=== PATIENT | female | born 1960 | race Caucasian/White ===

== ENCOUNTER → 2019-05-12 12:37 | Outpatient (BNVA) | payer MEDICAID, SELFPAY | PROVIDERS: Family Provider Family Medicine; Visit Provider Psychiatry & Neurology Psychiatry | DX: F41.0 Panic disorder [episodic paroxysmal anxiety] (principal); F17.210 Nicotine dependence, cigarettes, uncomplicated | CPT/HCPCS: 90832 ==

== ENCOUNTER 2019-05-17 08:05 | Inpatient (IN) | payer MEDICAID, SELFPAY ==
--- NOTE | 2019-05-13 08:15 | XRR_ITS ---
PROCEDURE INFORMATION: Exam: XR Chest, 1 View Exam date and time: 05/13/2019 9:53 AM Age: 58 years old Clinical indication: Pre-operative exam; Respiratory screening exam; Additional info: Preop cabg TECHNIQUE: Imaging protocol: XR of the chest Views: 1 view. COMPARISON: CR Chest 2 views* [id number] 12/30/2013 3:24 PM FINDINGS: Lungs: Unremarkable. No consolidation. Pleural space: Unremarkable. No pleural effusion. No pneumothorax. Heart/Mediastinum: Unremarkable. No cardiomegaly. Bones/joints: Unremarkable. XR/XR chest 1V portable [id number] IMPRESSION: No acute findings.
[2019-05-13 08:31] VITALS: BMI 22.6
--- NOTE | 2019-05-13 09:27 | ANES.PREANE2 ---
Pre-Anesthetic Assessment Pre-Anesthetic Assessment: Height/Weight: Height 1.68 m Weight 63.503 kg Preop Diagnosis: CAD Proposed Procedure: Operation Date: 05/17/19 07:00 Proposed Procedures p CABG(Not Applicable) - Yvon Coleman MD Social: Packs per day: 1/2 Pack years: 40 Exam: Pre-Anes Outpt Exam: alert, oriented x 3, clear to auscultation bilaterally and regular rate & rhythm Airway: Submandibular: WNL Cervical ROM: WNL MP: 1 Pulmonary: Pulmonary: Asthma and COPD CV/HEM: CV/HEM: Angina (Stable), CAD, HTN and PVD : Comments: hematuria with hx stones GI: GI: PUD Musc/skel: Musc/skel: Lower Back Pain Comments: right radiculopathy Neuropsych: Neuropsych: BOX Anesthetic Plan: ASA status: 4 Anesthesia: General PFSH Anesthesia PFSH: Medical History (Updated 05/12/19 @ 11:16 by Jhonny Gonzalez DO) CAD (coronary artery disease) Cigarette nicotine dependence COPD (chronic obstructive pulmonary disease) HTN (hypertension) Hypercholesteremia Panic disorder [episodic paroxysmal anxiety] Peripheral Vascular Disease Social History (Updated 05/12/19 @ 13:16 by Jahaira Tamez LPN) Smoking and tobacco status: current some day smoker cigarettes Years cigarettes smoked: 40 Quit status (tobacco): considering quitting Second hand smoke exposure: Yes Alcohol intake: current Pets and animals: Yes History of recent travel: No Data Anesthesia Cardiac Studies: No Data to Display
[2019-05-13 09:35] LABS: Basophils # 0.1 10^3/uL (0.0-0.1); Basophils % 0.5 %; Eosinophils # 0.2 10^3/uL (0.0-0.8); Eosinophils % 1.8 %; Hematocrit 44.2 % (37.0-47.0); Hemoglobin 14.2 g/dL (11.5-15.3); Lymphocytes # 5.5 10^3/uL (0.8-4.8); Lymphocytes % 44.2 %; Mean Corpuscular HGB Conc 32.1 g/dL (30.0-36.0); Mean Corpuscular Hemoglobin 31.2 pg (28.0-34.0); Mean Corpuscular Volume 97.1 fL (81-99); Monocytes # 0.6 10^3/uL (0.2-0.9); Monocytes % 5.1 %; Neutrophils % 48.1 %; Nucleated Red Blood Cells % 0 %; Platelet Count 297 10^3/cmm (130-400); Red Blood Count 4.55 10^6/uL (4.1-5.3); Red Cell Distribution Width 13.2 % (12.1-15.1); White Blood Count 12.5 10^3/uL (4.0-10.0)
[2019-05-13 09:45] LABS: Add Urine Microscopic? YES; Bilirubin Urine Neg (NEGATIVE); Blood Urine Trace (Negative); Glucose Urine UA Norm (Normal); Ketones Urine Negative (Negative); Leukocyte Esterase Urine Negative (Negative); Nitrate Urine Negative (Negative); Protein Urine Neg (Negative); Specific Gravity, Urine 1.015 (1.005-1.030); Urine Appearance Clear (CLEAR); Urine Color Yellow (Yellow); Urobilinogen Urine Norm (Negative)
[2019-05-13 09:46] LABS: INR 0.99 (0.8-1.2)
[2019-05-13 09:47] LABS: Partial Thromboplastin Time 32.3 SECONDS (23.9-36.7)
[2019-05-13 09:52] LABS: Add Urine Culture? No; Bacteria Urine TRACE; Mucus Urine 2+; RBC Urine 0-4 /hpf (0-2); Squamous Epithelial Cell Urine 0-4 (0-5)
[2019-05-13 10:02] LABS: Alanine Aminotransferase 10 U/L (0-33); Albumin Level 4.6 g/dL (3.5-5.2); Alkaline Phosphatase 75 IU/L (35-105); Anion Gap 16.9 (5-19); Aspartate Amino Transferase 17 U/L (0-32); Blood Urea Nitrogen 13 mg/dL (6-20); Calcium 9.9 mg/dL (8.5-10.5); Carbon Dioxide 27 mmol/L (22-29); Chloride 99 mmol/L (98-107); Free T4 Free Thyroxine 1.18 ng/dL (0.82-1.77); Globulin 3.4 g/dL (1.3-4.6); Glomerular Filtration Rate 86.2 mL/min (90-130); Glucose 121 mg/dL (65-115); Osmolality Calculated 285 mOsm/kg (285-295); Potassium 3.9 mmol/L (3.5-5.1); Sodium 139 mmol/L (136-145); Thyroid Stimulating Hormone 2.38 uIU/mL (0.27-4.20); Total Bilirubin 0.2 mg/dL (0.15-1.2)
[2019-05-17] VITALS (85 sets, daily range): BP systolic 76–131; BP diastolic 49–84; PULSE 81–122; RESP 7–22; TEMP 35.6–37; O2SAT 92–977
--- NOTE | 2019-05-17 05:00 | USCV_ITS ---
Neeru Kitchen Age: 58 Gender: F : 1960 Exam Date: 05/17/2019 05:21 Ordering Phys: Yvon Coleman MD (Andy) ([email or web address]) Technologist: Shane Mcwilliams Exam Location: [facility] [place] Indication: CABG RIGHT LEFT LOWER EXTREMITY Diameter Diameter (cm) (cm) 0.31 High Thigh 0.28 0.30 Mid Thigh 0.30 0.33 Above Knee 0.27 0.30 Below Knee 0.29 0.24 Mid Calf 0.28 Ankle 0.27 RIGHT LEFT Findings Veins are found to be easily compressible with no evidence of thrombosis Conclusions Patent near normal caliber veins bilaterally with no evidence of thrombosis Dr Flor Luevano MD FACC (Electronically Signed) Final Date: 17 May 2019 13:20 S
[2019-05-17 05:21] LABS: Glucose Point of Care 107 mg/dL (70-110)
--- NOTE | 2019-05-17 05:25 | SUR.PREOP ---
0522 MAXIMO with ultrasound here for vein mapping
[2019-05-17] MEDS: sodium chloride 0.9% 1,000 ML 30 ML IV ×2 (05:33→18:39)
--- NOTE | 2019-05-17 06:28 | PM.HPUD ---
H&P update H&P Update: DATE OF SURGERY/PROCEDURE: 05/17/19 DATE H&P PERFORMED: 04/29/19 H&P UPDATE INFORMATION: H&P completed within last 30 days and No changes to prior documentation CHANGES TO PREVIOUS DOCUMENTATION: Again, I had a careful, jovan, detailed discussion with Ms. Kithcen and her significant other concerning the seriousness of the operation and the need for postoperative surveillance to include skilled care and home health services. It is again clear that he will not allow home health visits. Please see my prior clinic notes as to my discussions with him concerning this, and his responses. PREOP DIAGNOSIS: CAD PRIMARY INDICATION FOR PROCEDURE: Severe coronary disease with recurrent angina PLANNED PROCEDURE: Operation Date: 05/17/19 07:00 Proposed Procedures p CABG(Not Applicable) - Yvon Coleman MD Full H&P Medications/Allergies: Current Medications: Current Medications Generic Name Dose Route Start Last Admin Trade Name Freq PRN Reason Stop Dose Admin Sodium Chloride 1,000 mls @ 30 ml s/hr 05/17/19 05:00 05/17/19 05:33 Sodium Chloride 0.9% IV 05/18/19 04:59 30 mls/hr .Q24H AMY Administration Perinent History: Medical/Surgical History: Medical History (Updated 05/12/19 @ 11:16 by Jhonny Gonzalez DO) CAD (coronary artery disease) Cigarette nicotine dependence COPD (chronic obstructive pulmonary disease) HTN (hypertension) Hypercholesteremia Panic disorder [episodic paroxysmal anxiety] Peripheral Vascular Disease Family History: Family History (Updated 04/07/19 @ 09:40 by Samantha Holcomb RN) Father Stroke Other Cancer Clotting disorder Social History: Social History Smoking and tobacco status: current some day smoker cigarettes Years cigarettes smoked: 40 Quit status (tobacco): considering quitting Second hand smoke exposure: Yes Alcohol intake: current Pets and animals: Yes History of recent travel: No
--- NOTE | 2019-05-17 06:34 | P.ANESUD_ITS ---
Pre-Anesthetic Update Pre-Anesthetic Assessment: Date of Surgery/Procedure: 05/17/19 Preop Geno gnosis: CAD Proposed Procedure: Operation Date: 05/17/19 07:00 Proposed Procedures p CABG(Not Applicable) - Yvon Cloeman MD Any changes to Pre-Anesthetic Assessment?: No Last Intake: Intake Last Liquid Date 05/17/19 Last Liquid Time 05:00 Last Solid Date 05/16/19 Last Solid Time 00:00 Labs Last 48hrs: Laboratory Results - last 48 hr 05/13/19 05/17/19 08:45 05:18 POC Glucose 107 Blood Type O Positive Antibody Screen Negative Crossmatch See Detail Vitals: Temperature 97.1 F L 05/17/19 05:02 Temperature Source Temporal Artery S can 05/17/19 05:02 Pulse Rate 100 05/17/19 05:02 Respiratory Rate 20 H 05/17/19 05:02 Blood Pressure 121/66 05/17/19 05:02 Blood Pressure Keyonna n 84 05/17/19 05:02 Pulse Oximetry 93 05/17/19 05:02 Oxygen Delivery Me thod 05/17/19 05:02 Exam: Pre-Anes Outpt Exam: alert, oriented x 3 and regular rate & rhythm Additional Exam Findings (including area of procedure): wheezes/coarse breath sounds bilaterally. Still has chronic cough. Other Pertinent Information: Other Pertinent Information: Took atenolol this morning Cardiac Studies: No Data to Display
--- NOTE | 2019-05-17 08:10 | XR_ITS ---
WS: [id number] XR chest 1V portable [id number] REASON FOR EXAM: ET tube placement FINDINGS: Endotracheal tube is seen in the tip is at the lower half of the T3 vertebra 2.34 cm from t he shirley. Lung burch are hyper aerated. No pneumonia, pleural effusion, pulmonary edema, or mass ef fect. XR/XR chest 1V portable [id number] IMPRESSION: Endotracheal tube 2.34 cm from the shirley in adequate position.
--- NOTE | 2019-05-17 08:47 | PM.PN ---
Subjective Subjective: Interval history: was electively needed today for planned CABG with three-vessel disease. She remains hemodynamically stable, however, upon intubation for planned invasive line placement prior to CABG, she was noted to have substantial bronchospasm and prolonged expiratory phase. This did not clear with the use of albuterol treatments. She continued to have substantial air trapping. Therefore, I elected to abort proceeding with line placement for planned CABG and have the patient transported to the ICU. I have consulted and spoken personally with my colleague Dr. Maurice from pulmonary medicine. He is initially evaluated patient in the ICU and will make appropriate adjustments as necessary. She will remain intubated for the time being as she has received paralytics and plan for CABG. Currently she is on IV ratio 1-8 with elective passive hypercarbia and O2 saturation 100%. Chest x-ray is clear with flattened diaphragms and increased lung volumes consistent with COPD. Vitals/I&O/Wt Last Vital Signs Temp 97.1 F L 05/17/19 05:02 Pulse 100 05/17/19 05:02 Resp 20 H 05/17/19 05:02 BP 121/66 05/17/19 05:02 Pulse Ox 93 05/17/19 05:02 Physical Exam Neck/C-Spine: COMMON NORMALS: no JVD Resp: COMMON NORMALS: negative for clear to auscultation bilaterally AUSCULTATION: not clear to auscultation bilaterally, abnormal I/E ratio, wheezes expiratory wheezes and upper bilaterally and diminished lung sounds Cardio: COMMON NORMALS: no JVD, regular rate, regular rhythm, S1 normal heart sound, no gallops, no murmurs and no rub RATE: regular rate RHYTHM: regular rhythm HEART SOUNDS: S1 normal Data : 05/13/19 08:45 05/13/19 08:45 A&P Assessment and plan (1) Chronic obstructive pulmonary disease with bronchospasm: Impressive bronchospasm status post intubation for planned CABG. CABG will be delayed and patient is been transported to ICU for continued medical care with the expertise from Dr. Maurice from pulmonary medicine. Her family member has been Well apprised of the situation and states understanding. Status: Acute Code(s): J44.9 - Chronic obstructive pulmonary disease, unspecified Attestations Medical Necessity Statement*: Acute bronchospasm preop CABG Time Spent in Patient Care: Greater than 35 minutes Coding Level of Care Code Acute Rv Service Technician for [facility] Diagnoses Chronic obstructive pulmonary disease with bronchospasm J44.9
[2019-05-17] MEDS: propofol 1,000 MG/100 ML INJ 1.9 MG IV (09:02)
[2019-05-17 09:18] LABS: ABG PH Result 7.24 (7.35-7.45); Arterial Blood Gas Hematocrit 40.8 % (37-47); Base Excess ABG -0.9 mmol/L (-2.0-2.0); Blood Gas Sample Site ARTLINE; Blood Gas Sample Type Arterial; Blood Gas Tidal Volume 0.45; Carboxyhemoglobin 2.7 %THgb (0.4-20.1); HCO3 ABG 28.1 mmol/L (22-26); HGB O2 Sat 96.2 % (95-100); Ionized Calcium Level - ABG 1.2 mmol/L (1.1-1.4); Oxygen Device VENT; Oxygen Saturation ABG 99.9; Potassium Level - ABG 3.6 mmol/L (3.5-5.0); Total Hemoglobin 13.3 g/dL (12-16)
--- NOTE | 2019-05-17 09:20 | P.CONIM_ITS ---
Providers/Reason For Consult Consulting Physican/Specialty*: Pulmonary critical care medicine Reason for Consult*: Acute hypercapnic respiratory failure Attending Physician: Yvon Coleman MD Primary Care Provider: VELMA Minor History of Present Illness History of Present Illness Neeru Kitchen is a 58 year old female who presented to the hospital today for elective coronary artery bypass graft surgery. The patient was doing well in the preop area. After the patient underwent intubation for induction of general anesthesia the patient went into severe bronchospasm and was found to be difficult to ventilate. Her end-tidal CO2 was less than 10. There was almost no breath sound. The endotracheal tube positioning was checked with bronchoscope. The anesthesia team tried with sevoflurane to induce bronchodilation however she was still profoundly bronchospastic. The patient was already paralyzed for the intubation, the procedure was canceled and the patient was brought to the ICU. I had evaluated the patient in ICU on arrival. She was intubated, paralyzed. The patient had a peak airway pressure of 35 and a plateau pressure of 24. This was consistent with both increased airway resistance and compliance. Chest x- ray revealed no pneumothorax. Her tidal volume was in the range of 200s. On chest auscultation, there was no breath sound except some rhonchi. The patient at that time was on respiratory rate of 18. The flow time graft on the ventilator revealed significant air trapping. I had reduced the patient's respiratory rate to 8, increase the tidal volume to 480 gradually. With a significant increase in inspiratory to expiratory ratio higher end expiratory flow was minimal. Repeat measurement showed high peak pressure to be 45 with a tidal volume of 480 and plateau of 19, consistent with significantly increased airway resistance. A blood gas revealed her pH to be 7.23 with hypercapnia and PO2 in the 500s. The FiO2 was reduced. The breath sound was better. The patient was also started on continuous nebulization with 10 mg of albuterol. Based on the progression of events, I believe that the initial combination of airway resistance and compliance problem possibly stemmed from bronchospasm as well as hyperinflation. After the ventilator changes currently the patient has predominantly airway resistance problem. The history is somewhat limited because of her clinical condition. The patient however is an active smoker. Review of Systems Narrative: Unable to obtain. Meds/Allergies Home Medications and Allergies Home Medications Medication Instructions Recorded Confirmed Type albuterol sulfate 2.5 mg INHALATION Q6H 04/07/19 05/17/19 History albuterol sulfate 90 mcg/actuation 2 puff INHALATION Q6H PRN 04/07/19 05/17/19 History aerosol inhaler atenolol 25 mg tablet 25 mg PO DAILY tab 04/07/19 05/17/19 History epinephrine 0.3 mg/0.3 mL 0.3 mg IM ONCE 04/07/19 05/13/19 History injection, auto-injector fluticasone propionate 50 1 spray INTRANASAL BID 04/07/19 05/17/19 History mcg/actuation nasal spray,suspension nitroglycerin 0.4 mg sublingual 0.4 mg SUBLINGUAL Q5M PRN 04/07/19 05/13/19 History tablet venlafaxine 75 mg capsule,extended 75 mg PO QAM 04/07/19 05/13/19 History release 24 hr ergocalciferol (vitamin D2) 50,000 50,000 unit PO .weekly tab 04/29/19 05/17/19 History unit tablet isosorbide mononitrate 30 mg 30 mg PO QAM tab 04/29/19 05/17/19 History tablet,extended release 24 hr simvastatin 20 mg tablet 20 mg PO QDAY 04/29/19 05/17/19 History Allergies Allergy/AdvReac Type Severity Reaction Status Date / Time aspirin Allergy UNK Verified 05/17/19 04:56 gabapentin Allergy UNK Verified 05/17/19 04:56 ibuprofen [From Motrin] Allergy UNK Verified 05/17/19 04:56 Sulfa (Sulfonamide Allergy UNK Verified 05/17/19 04:56 Antibiotics) tramadol Allergy UNK Verified 05/17/19 04:56 Current Medications Current Medications Generic Name Dose Route Start Last Admin Trade Name Freq PRN Reason Stop Dose Admin Chlorhexidine Gluconate 15 ml 05/13/19 09:00 05/17/19 09:13 Perigard MUCOUS MEM Not Given BID AMY Sodium Chloride 1,000 mls @ 30 mls/hr 05/17/19 05:00 05/17/19 05:33 Sodium Chloride 0.9% IV 05/18/19 04:59 30 mls/hr .Q24H AMY Administration Fentanyl 1,000 mcg/ Sodium 100 mls @ 0 mls/hr 05/17/19 08:30 05/17/19 09:03 Chloride IV 25 mcg/hr .Q0M AMY 2.5 mls/hr Administration Protocol Per Protocol Propofol 1,000 mg in 100 mls @ 0 mls/hr 05/17/19 08:30 05/17/19 09:02 Diprivan IV 5 mcg/kg/min .Q0M AMY 1.9 mls/hr Administration Protocol Per Protocol Mupirocin 1 applic 05/13/19 09:00 05/17/19 09:14 Bactroban NASAL Not Given BID AMY PFSH Acute PFSH: Medical History CAD (coronary artery disease) Chronic obstructive pulmonary disease with bronchospasm Cigarette nicotine dependence COPD (chronic obstructive pulmonary disease) HTN (hypertension) Hypercholesteremia Panic disorder [episodic paroxysmal anxiety] Peripheral Vascular Disease Family History Father Stroke Other Cancer Clotting disorder Social History Smoking and tobacco status: current some day smoker cigarettes Years cigarettes smoked: 40 Quit status (tobacco): considering quitting Second hand smoke exposure: Yes Alcohol intake: current Pets and animals: Yes History of recent travel: No Vitals/I&O/Wt Last Vital Signs Temp 96.1 F L 05/17/19 09:05 Pulse 100 05/17/19 05:02 Resp 14 05/17/19 09:03 BP 121/66 05/17/19 05:02 Pulse Ox 100 05/17/19 09:03 Physical Exam Narrative: EXAM NARRATIVE: General: Intubated and sedated Neck: No JVD Respiratory: Inspection: Barrel-shaped chest Palpation: patient is intubated with trachea in midline Percussion: Hypertympanic Auscultation: Minimal breath sound in bilateral lungs which improved in subsequent exams, no crackles, minimal wheezing and rhonchi Cardiovascular: Regular rate and rhythm, S1-S2 present, no murmur, no right ventricular heave, no peripheral edema. Abdomen: Soft, nondistended, positive bowel sound Musculoskeletal: No obvious joint deformity Neuro: Unable to assess Data Imaging^: CXR: My impression: Hyperinflated lungs without any evidence of infiltrate. A&P Assessment and plan (1) Acute and chronic respiratory failure with hypercapnia: The patient has evidence of acute on chronic hypercapnic respiratory failure. Her baseline hypercapnia is minimal. The last blood gas showed a pH of 7.23 with a PCO2 of 66. The patient has evidence of hyperinflation on chest x-ray and significant history of smoking. The patient is doing much better with the current ventilator setting. We will continue with a tidal volume of 500, respiratory rate of 8, PEEP of 8 and titrate the FiO2 down to maintain oxygen saturation 88% and above. The patient is currently getting inhaled albuterol for an hour. We will continue with DuoNeb and Pulmicort nebulization as well as start her on Solu- Medrol 40 mg every 6 hours. Levaquin 750 mg daily for 5 days. The patient needs significant duration of time to exhale completely. The elevated peak airway pressure is not of concern as the plateau pressure is less than 30. I expect the peak pressure to get better with subsequent improvement in the bronchospasm. The patient is sedated with fentanyl and propofol. If the patient is not compliant with the vent and starts becoming tachypneic I might have to paralyze her. As any increase in her respiratory rate will make the airflow obstruction worse and because auto PEEP. Status: Acute Code(s): J96.22 - Acute and chronic respiratory failure with hypercapnia (2) Acute exacerbation of chronic obstructive pulmonary disease (COPD): I do not have access to any previous pulmonary function test. I expect the patient to get better in the next 48 hours or so. The patient will need outpatient follow-up and optimization prior to any surgical intervention. Thank you for the consultation. I will continue to follow patient Status: Acute Code(s): J44.1 - Chronic obstructive pulmonary disease with (acute) exacerbation Coding Level of Care Code Acute Gift Basket Packer for [facility] Diagnoses Acute and chronic respiratory failure with hypercapnia J96.22 Acute exacerbation of chronic obstructive pulmonary disease (COPD) J44.1 Time Spent (min) 47
[2019-05-17 09:22] LABS: ABG PH Result 7.23 (7.35-7.45); Alveolar-Arterial Oxygen Gradi 124.2 mmHg (5-10); Arterial Blood Gas Hematocrit 44.7 % (37-47); Base Excess ABG -1.2 mmol/L (-2.0-2.0); Blood Gas Allen Test Pos; Blood Gas Sample Site ARTLINE; Blood Gas Sample Type Arterial; Carboxyhemoglobin 2.5 %THgb (0.4-20.1); HGB O2 Sat 95.4 % (95-100); Ionized Calcium Level - ABG 1.2 mmol/L (1.1-1.4); Oxygen Device VENT; Oxygen Saturation ABG 98.9; Potassium Level - ABG 3.7 mmol/L (3.5-5.0); Total Hemoglobin 14.6 g/dL (12-16)
[2019-05-17] MEDS: chlorhexidine gluconate 0.12% Btl 473 mL 15 ML MUCOUS MEM ×2 (09:38→17:27)
[2019-05-17 09:49] LABS: ABG PCO2 66.1 mmHg (35-45)
[2019-05-17 09:50] LABS: ABG PCO2 66.4 mmHg (35-45)
[2019-05-17] MEDS: atorvastatin 40 mg Tablet 20 MG PO (10:01)
[2019-05-17] MEDS: diazePAM 5 mg Tablet 2.5 MG PO ×2 (10:02→18:33)
[2019-05-17] MEDS: atenolol 50 mg Tablet 25 MG PO (10:02)
[2019-05-17] MEDS: levofloxacin-dextrose 5 % 750 MG/150 ML PREMIX 150 MG IV (10:04)
[2019-05-17] MEDS: enoxaparin 40 mg/0.4 mL Syringe SUBCUT (10:04)
[2019-05-17] MEDS: budesonide 0.5 mg/2 mL Neb INHALATION ×2 (10:07→20:28)
[2019-05-17 10:20] LABS: ABG PH Result 7.25 (7.35-7.45); Arterial Blood Gas Hematocrit 41.5 % (37-47); Base Excess ABG -0.5 mmol/L (-2.0-2.0); Blood Gas Sample Site ARTLINE; Blood Gas Sample Type Arterial; Blood Gas Tidal Volume 0.4; Carboxyhemoglobin 2.2 %THgb (0.4-20.1); HCO3 ABG 28.1 mmol/L (22-26); HGB O2 Sat 95.5 % (95-100); Ionized Calcium Level - ABG 1.2 mmol/L (1.1-1.4); Methemoglobin 1.1 % (0.4-1.5); Oxygen Device VENT; Oxygen Saturation ABG 98.7; Potassium Level - ABG 3.3 mmol/L (3.5-5.0); Total Hemoglobin 13.5 g/dL (12-16)
[2019-05-17] MEDS: pantoprazole 40 mg SDV IVP (10:58)
[2019-05-17] MEDS: ipratropium-albuterol 3 mL Neb INHALATION ×4 (11:18→23:26)
--- NOTE | 2019-05-17 11:43 | P.HP_ITS ---
Providers/Chief Complaint Admitting Physician: Yvon Coleman MD Primary Care Provider: VELMA Minor Chief Complaint: CABAGE History of Present Illness Neeru Kitchen is a 58 year old female whom I saw originally in my office as an outpatient consultation from Dr. Juarez back on January 19, 2019. She had been evaluated for recurrent and progressive chest discomfort associated with exertion and with a high index of suspicion for coronary artery disease. This resulted in an outpatient stress test which revealed ischemia in the LAD distribution as well as a high TID ratio. Subsequent left heart catheterization was performed by Dr. Juarez on January 07 of last year which revealed a 50% left main stenosis, 90% proximal severe disease LAD which also involved the midsectio n, 70% stenosis of the first diagonal, 70% stenosis of the proximal circumflex artery, with moderate proximal RCA disease at 50% and 100% distal occlusion of the RCA with [id number] collaterals from the circumflex artery. Ejection fraction of 65% was confirmed by echocardiogram. When I initially saw her, she was reluctant to consider surgery as she stated that she was allergic to metals. When we inquired as to more specifics, she was unable to give us much detail. Also, she did ask for a second opinion, which we offered to help establish this for her. She also takes numerous herbal medications as well as smokes pipe tobacco that she rolls herself. Upon further discussions with family, she wished to be reconsidered for CABG here at [facility]. I most recently saw her again as an outpatient on April 29, 2019. I discussed the need to discontinue her herbal medications and attempt to decrease her tobacco use. Because of my concerns related to postoperative care, I did recommend [facility] care followed by home health care. Initially, she refused both but subsequently agreed to [facility] care and consideration for home health care if agreeable by her significant other. I contacted him by phone last week, but it was clear he was not going to allow this. I stated that we may not be able to provide the surgery if we were unsure of her postoperative care to help increase her chances for a good outcome. He then accused us of working only for profit and not for the welfare of Ms. Kitchen. As our conversation continued, it was clear that he was becoming more agitated. I did offer attempts to establish and expedite referral for other considerations, but he was not open to this idea. After further discussions with Ms. Kitchen, we have agreed to proceed, though it is clear they will not allow home health services. Please see my clinic notes concerning this conversation and the details provided. I did discuss details and risk of the surgery very carefully and frankly with Ms. Kitchen and her significant other, who did not accompany her on today's hospital visit, but has not been with her on our prior clinic visits. We subsequently proceeded to the operating room theater for planned CABG. After placement of a right radial arterial line and intubation by Dr. Walters, marked bronchospasm was noted with substantial air trapping. Despite albuterol treatments, this improved only modestly. I am concerned for the early postoperative course in relation to this substantial airway obstruction, therefore I elected to cancel surgery at this time. Her airway pressures are elevated with only modest tidal volumes and she has a protracted expiratory phase. With increasing the expiratory time, this was improved, though she then had progressively elevated CO2 by capnography. She has been left intubated and will be taken to the ICU. I have been in contact personally by phone with Dr. Maurice, our home care liaison. He will be assisting in her postoperative management and making airway recommendations. I do feel given the other comorbidities and the less than ideal postoperative situation which has been agreed to, it is prudent for us to attempt to maximize her pulmonary situation prior to rescheduling her CABG. I have kept her family member aware and our recommendations, and at this time, he concurs. Dr. Maurice and I have personally reviewed the post intubation chest x-ray that was obtained in the ICU. Endotracheal tube is in good position. There are no infiltrates or effusions. Lungs are fully expanded with some flattening of the diaphragms consistent with COPD. Due to difficulties with the E HR, I cannot get the home medication list to populate on the H&P, though I have reviewed and confirmed. Review of Systems Const: Reports: night sweats Eyes: Denies: change in vision Card: Reports: chest pain (Intermittently with exertion); Denies: palpitations, irregular heart rhythm or edema Resp: Reports: shortness of breath (With only modest exertion), non-productive cough and wheezing (Rarely) GI: Denies: abdominal pain, vomiting blood, coffee grounds in vomit or difficulty swallowing : Reports: urinary dribbling; Denies: difficulty urinating, painful urination or urinary frequency Musc: Reports: neck pain, back pain and joint pain Neuro: Denies: headache, numbness in extremities or slurred speech Psych: Reports: anxiety (On chronic Xanax) and depression Medications/Allergies Allergies Allergy/AdvReac Type Severity Reaction Status Date / Time aspirin Allergy UNK Verified 05/17/19 04:56 gabapentin Allergy UNK Verified 05/17/19 04:56 ibuprofen [From Motrin] Allergy UNK Verified 05/17/19 04:56 Sulfa (Sulfonamide Allergy UNK Verified 05/17/19 04:56 Antibiotics) tramadol Allergy UNK Verified 05/17/19 04:56 PFSH Acute PFSH: Medical History CAD (coronary artery disease) Chronic obstructive pulmonary disease with bronchospasm Cigarette nicotine dependence COPD (chronic obstructive pulmonary disease) HTN (hypertension) Hypercholesteremia Panic disorder [episodic paroxysmal anxiety] Peripheral Vascular Disease Family History Father Stroke Other Cancer Clotting disorder Social History Smoking and tobacco status: current some day smoker cigarettes Years cigarettes smoked: 40 Quit status (tobacco): considering quitting Second hand smoke exposure: Yes Alcohol intake: current Pets and animals: Yes History of recent travel: No Vitals/I&O/Wt Last Vital Signs Temp 96.1 F L 05/17/19 09:05 Pulse 116 H 05/17/19 11:26 Resp 14 05/17/19 11:23 BP 121/66 05/17/19 05:02 Pulse Ox 99 05/17/19 11:22 05/16/19 05/17/19 05/17/19 22:59 06:59 14:59 Intake Total 29.532 / 29.532 Balance 29.532 / 29.532 Physical Exam Const: OTHER: Patient is currently orally intubated with stable vital signs. She has received paralytic in the operating room theater. We are placing her on a propofol infusion at the present time until we have maximized her pulmonary function to allow for safe extubation. Eye: COMMON NORMALS: PERRL, conjunctivae normal and no scleral icterus Chest: COMMONS NORMALS: inspection of chest normal Resp: EFFORT & INSPECTION: No tracheal deviation AUSCULTATION: not clear to auscultation bilaterally, wheezes expiratory wheezes and upper bilaterally and diminished lung sounds bilateral in the lower lung burch Cardio: COMMON NORMALS: regular rate, regular rhythm, S1 normal heart sound, no gallops and no murmurs Extremity: COMMON NORMALS: no clubbing, cyanosis or edema Neuro: OTHER: Neurological assessment prior to entering the OR suite was normal. Current assessment is deferred as she is on a propofol infusion. Data : 05/13/19 08:45 05/13/19 08:45 A&P Assessment and plan (1) Chronic obstructive pulmonary disease with bronchospasm: Ms. Kitchen will be monitored in the ICU. She currently remains intubated. I have conferred with my colleague Dr. Maurice at bedside. Appropriate respiratory treatments and ventilator settings will be adjusted as she responds. I have also counseled with her family member. He has visited with her at bedside. It is my understanding he is returning home. I will not reschedule surgery at this time until we have confirmed that her pulmonary status is maximized and stable. Status: Acute Code(s): J44.9 - Chronic obstructive pulmonary disease, unspecified Attestations Medical Necessity Statement*: Coronary artery disease with COPD exacerbation and bronchospasm Time Spent in Patient Care: Greater than 35 minutes Coding Level of Care Code Acute Excellence Specialist for [facility] Diagnoses Chronic obstructive pulmonary disease with bronchospasm J44.9
[2019-05-17 11:58] LABS: ABG PCO2 54.8 mmHg (35-45); ABG PH Result 7.28 (7.35-7.45); Alveolar-Arterial Oxygen Gradi 104.5 mmHg (5-10); Arterial Blood Gas Hematocrit 40.5 % (37-47); Base Excess ABG -1.9 mmol/L (-2.0-2.0); Blood Gas Sample Site Not specified; Blood Gas Sample Type Arterial; Blood Gas Tidal Volume 0.4; Carboxyhemoglobin 1.9 %THgb (0.4-20.1); HCO3 ABG 25.7 mmol/L (22-26); HGB O2 Sat 95.2 % (95-100); Ionized Calcium Level - ABG 1.2 mmol/L (1.1-1.4); Methemoglobin 1.2 % (0.4-1.5); Oxygen Device VENT; Oxygen Saturation ABG 98.2; Total Hemoglobin 13.2 g/dL (12-16)
[2019-05-17 12:10] LABS: ABG PCO2 63.5 mmHg (35-45)
[2019-05-17] MEDS: propofol 1,000 MG/100 ML INJ 11.4 MG IV ×2 (13:31→19:24)
--- NOTE | 2019-05-17 13:52 | PC.CHAP ---
Pastoral Care Encounter/Spiritual Assessment Type of Contact [] Declined incident response coordinator visit [] Patient/Family/Request visit [] Outpatient visit [] Follow-up visit [] Physician referral [] Code/Alert [] Routine visit [] Staff referral [] Actively dying [] Patient sleeping [] Family support [] [] Out of room [] Palliative care [] [] Receiving care in room [] Pre-surgical visit [] Trauma [] Long length of stay [x] ICU visit [] Other: Relational/Emotional Strength [] Patient feels connected with others/family/visitors/staff [] Distress [] Loneliness/isolation [] Abandonment Spirituality of Patient [] Person of Catarina [] Attends Christian of their Catarina [] Believes in Prayer [] Reads Bible or Religion materials [] There are Spiritual issues to be addressed Food And Beverage Operations Manager Interventions [x] Prayer [] Active listening [] Non-anxious presence [] Spiritual/emotional support [] Crisis/trauma care [] Spiritual counseling [] Bereavement support [] Provided bereavement packet [] Provided Bible/devotional materials [] Provided toy/stuffed animal, coloring book to patient or family member [] Provided Communion [] Anointing/[place] [] Salvation [] Completed spiritual assessment [] Other: Impact on Illness or Injury [] Angry [] Fearful [] Anxious [] Often cries [] Exhaustion [] Unable to work [] Unable to attend sabianism [] Unable to walk/stand [] Unable to read [] Unable to drive [] Unable to eat/drink [] Unable to sleep [] Unable to be with family [x] Patient intubated [] Other: Summary Patient was intubated and not awake. Food And Beverage Operations Manager prayed over patient. Patient visited by Food And Beverage Operations Manager Emil Lund. Time spent with patient 5 minutes
--- NOTE | 2019-05-17 19:25 | PC.NURSE ---
opening note received patient from TYE Gayle. patient is intubated and sedated. 7.5 tube 25 in at the lip. VT:400 PEEP:5 FIO2:40. patient has an OG clamped . peripheral IVs in 16 G left hand and 16G left forearm. a-line to right wrist zeroed c good wave form, Normal saline at 30mls/hr. Propofol at 35mcg/kg/min. fentanyl at 75mcg/hr. patient has bilateral upper extremity soft wrist restraints for patient safety. lomax with clear drainage.
[2019-05-18] VITALS (49 sets, daily range): BP systolic 85–115; BP diastolic 52–72; PULSE 61–110; RESP 11–25; TEMP 36.7–37.1; O2SAT 91–98
[2019-05-18] MEDS: propofol 1,000 MG/100 ML INJ 11.4 MG IV ×2 (00:49→06:48)
[2019-05-18] MEDS: ipratropium-albuterol 3 mL Neb INHALATION ×6 (04:32→23:15)
[2019-05-18 04:54] LABS: ABG PCO2 53.1 mmHg (35-45); ABG PH Result 7.32 (7.35-7.45); Arterial Blood Gas Hematocrit 40.1 % (37-47); Base Excess ABG 0.2 mmol/L (-2.0-2.0); Blood Gas Allen Test Pos; Blood Gas Sample Site Radial, right; Blood Gas Sample Type Arterial; HCO3 ABG 27.3 mmol/L (22-26); Oxygen Device VENT; PO2 ABG 93.7 mmHg (80.0-100.0)
[2019-05-18 04:57] LABS: Basophils % 0.1 %; Hemoglobin 12.8 g/dL (11.5-15.3); Lymphocytes # 1.6 10^3/uL (0.8-4.8); Lymphocytes % 13.6 %; Mean Corpuscular Hemoglobin 31.1 pg (28.0-34.0); Mean Corpuscular Volume 97.3 fL (81-99); Mean Platelet Volume 9.6 fL (7.4-10.4); Monocytes # 0.3 10^3/uL (0.2-0.9); Monocytes % 2.2 %; Neutrophils # 9.5 10^3/uL (1.8-7.7); Neutrophils % 83.7 %; Nucleated Red Blood Cells % 0 %; Platelet Count 291 10^3/cmm (130-400); Red Blood Count 4.11 10^6/uL (4.1-5.3); Red Cell Distribution Width 13.3 % (12.1-15.1); White Blood Count 11.4 10^3/uL (4.0-10.0)
[2019-05-18 05:19] LABS: Anion Gap 17.3 (5-19); Blood Urea Nitrogen 15 mg/dL (6-20); Calcium 9.5 mg/dL (8.5-10.5); Carbon Dioxide 25 mmol/L (22-29); Chloride 97 mmol/L (98-107); Glomerular Filtration Rate 86.2 mL/min (90-130); Glucose 194 mg/dL (65-115); Osmolality Calculated 282 mOsm/kg (285-295); Potassium 4.3 mmol/L (3.5-5.1); Sodium 135 mmol/L (136-145)
--- NOTE | 2019-05-18 06:00 | XR_ITS ---
WS: [id number] XR chest 1V portable [id number] REASON FOR EXAM: Hospital day #1 status post intubation; preop CABG; bronchospasm FINDINGS: Endotracheal tube remains in good position as well as a feeding tube in the stomach. There is arteriosclerotic changes seen in the arch the aorta. The heart is not enlarged. There is chronic changes in both lung burch but no pneumonia, pleural effusion, pulmonary edema, no pneumothorax. XR/XR chest 1V portable [id number] IMPRESSION: Endotracheal tube unchanged in good position. The lung burch are otherwise normal. A feeding tube is seen in the region of the stomach in good position.
--- NOTE | 2019-05-18 06:04 | P.PN_ITS ---
Subjective Subjective: Interval history: Nursing service reports patient had uneventful night. She is currently orally intubated and appears comfortable with sedation in place. Peak airway pressure 27. FiO2 40%, rate 12 No EKG changes Vitals/I&O/Wt Last Vital Signs Temp 98.1 F 05/18/19 03:00 Pulse 104 H 05/18/19 04:33 Resp 15 05/18/19 04:33 BP 108/62 05/18/19 04:00 Pulse Ox 94 05/18/19 04:33 05/17/19 05/17/19 05/18/19 14:59 22:59 06:59 Intake Total 302.522 / 302.522 460.07 / 762.592 134.167 / 896.759 Output Total 418 / 418 200 / 618 Balance 302.522 / 302.522 42.07 / 344.592 -65.833 / 278.759 Physical Exam Resp: OTHER: Orally intubated and mechanically ventilated. Breath sounds substantial improved with less expiratory wheezes noted Cardio: COMMON NORMALS: regular rate, regular rhythm and S1 normal heart sound RATE: regular rate RHYTHM: regular rhythm HEART SOUNDS: S1 normal Urinary Catheter Management^: Garza: Cath Placed During This Visit: yes Urethral Indwelling: Yes Reason for Continuing Indwelling Catheter: Accurate Measurement of Urinary Output in Critically Ill Patients Urinary Catheter Date of Insertion: 05/17/19 Data : 05/18/19 04:30 05/18/19 04:30 Micro: Microbiology 05/17/19 08:50 Gram Stain - Final Sputum - Endotracheal Tube Aspirate A&P Assessment and plan (1) Chronic obstructive pulmonary disease with bronchospasm: Acute bronchospasm status post intubation for planned CABG. It is my understanding Dr. Maurice plans for evaluation this morning and extuba tion. Greatly appreciate his expertise. We will have to assess stability and long-term maintenance of medical management for maximal pulmonary reserve and subsequently reconsider CABG at a future date. Status: Acute Code(s): J44.9 - Chronic obstructive pulmonary disease, unspecified Attestations Medical Necessity Statement*: COPD with acute bronchospasm Time Spent in Patient Care: less than 15 minutes Coding Level of Care Code Acute Instructor Tap Dancing for [facility] Diagnoses Chronic obstructive pulmonary disease with bronchospasm J44.9
[2019-05-18] MEDS: budesonide 0.5 mg/2 mL Neb INHALATION ×2 (07:49→20:13)
[2019-05-18] MEDS: chlorhexidine gluconate 0.12% Btl 473 mL 15 ML MUCOUS MEM (08:10)
[2019-05-18] MEDS: diazePAM 5 mg Tablet 2.5 MG PO ×2 (08:10→17:26)
[2019-05-18] MEDS: atorvastatin 40 mg Tablet 20 MG PO (08:11)
[2019-05-18] MEDS: atenolol 50 mg Tablet 25 MG PO (08:11)
[2019-05-18] MEDS: pantoprazole 40 mg SDV IVP (08:12)
[2019-05-18] MEDS: levofloxacin-dextrose 5 % 750 MG/150 ML PREMIX 100 MG IV (08:17)
[2019-05-18] MEDS: enoxaparin 40 mg/0.4 mL Syringe SUBCUT (08:17)
--- NOTE | 2019-05-18 11:25 | P.PN_ITS ---
Subjective Subjective: Interval history: The patient was seen and examined this morning. She was intubated and sedated at the time compliant with the ventilator and doing well. I had started her on Precedex with a plan to discontinue the fentanyl and propofol that she was on for sedation. Subsequently the patient was extubated successfully. Medications: Reviewed: Yes Vitals/I&O/Wt Last Vital Signs Temp 98.4 F 05/18/19 08:00 Pulse 95 05/18/19 10:00 Resp 15 05/18/19 10:16 BP 91/57 05/18/19 10:00 Pulse Ox 96 05/18/19 10:00 05/17/19 05/18/19 05/18/19 22:59 06:59 14:59 Intake Total 460.07 / 762.592 202.377 / 964.969 350.769 / 350.769 Output Total 418 / 418 200 / 618 Balance 42.07 / 344.592 2.377 / 346.969 350.769 / 350.769 Physical Exam Narrative: EXAM NARRATIVE: General: Patient is awake alert and oriented, communicating after extubation Neck: No JVD, no cervical or supraclavicular lymphadenopathy. Respiratory: Inspection: Barrel-shaped chest Palpation: Trachea is mildly deviated to the right Percussion: Bilateral tympanic percussion note both anterior and posteriorly Auscultation: Vesicular breath sound with prolonged expiration, no crackles diffuse wheezing and rhonchi Cardiovascular: Regular rate and rhythm, S1-S2 present, no murmur, no peripheral edema. Abdomen: Soft, nontender, nondistended, positive bowel sound Musculoskeletal: No obvious joint deformity Skin: No rash Neuro: Patient is awake alert and oriented, no focal deficit Urinary Catheter Management^: Garza: Cath Placed During This Visit: yes Urethral Indwelling: Yes Reason for Continuing Indwelling Catheter: Accurate Measurement of Urinary Output in Critically Ill Patients Urinary Catheter Date of Insertion: 05/17/19 Data : 05/18/19 04:30 05/18/19 04:30 Micro: Microbiology 05/17/19 08:50 Gram Stain - Final Sputum - Endotracheal Tube Aspirate Sputum Culture - Preliminary CXR: My impression: Chest x-ray obtained this morning showed hyperinflation however comparison to chest x-ray obtained yesterday hyperinflation has gotten significantly better. There is significant translucency on the chest x-ray obta ined yesterday which is not present today. There is no infiltrate in any particular distribution. A&P Assessment and plan (1) Acute and chronic respiratory failure with hypercapnia: The patient did well with pressure support ventilation and was successfully extubated. She is doing well currently. She will need optimization of her therapy for COPD. I have cut on the patient's steroid to 40 mg IV twice a day. She could be put on prednisone 40 mg daily from tomorrow to complete 3 more days of therapy. If the patient were to undergo CABG down the line will have to carefully manage her respiratory status during the perioperative.. The patient requires a significant amount of time to exhale all the way and we might have to consider to give her a respiratory rate of 8-10 with a higher tidal volume to support her during the procedure. She has evidence of hypercapnia and will possibly require a noninvasive ventilator at home. However the patient does have social issues and probably benefit from a social service director consult. I will be happy to follow-up with her as outpatient. Status: Acute Code(s): J96.22 - Acute and chronic respiratory failure with hypercapnia (2) Acute exacerbation of chronic obstructive pulmonary disease (COPD): The patient is currently on steroid and antibiotic. The Levaquin can be switched to oral tomorrow to complete a total of 5-day course. The patient will need a stable inhaler regimen prior to discharge. She will possibly require triple therapy. I will arrange for that prior to her discharge. Thank you for allowing me to participate in this patient's care. Status: Acute Code(s): J44.1 - Chronic obstructive pulmonary disease with (acute) exacerbation Attestations Medical Necessity Statement*: Will defer to the primary team Coding Level of Care Code Acute Size Marker for Peyton Cannon Diagnoses Acute and chronic respiratory failure with hypercapnia J96.22 Acute exacerbation of chronic obstructive pulmonary disease (COPD) J44.1 Time Spent (min) 33
--- NOTE | 2019-05-18 11:38 | PC.RESP ---
extubated pt extubated and placed on 3lpm nc, tolerated well
[2019-05-18] MEDS: venlafaxine ER (24HR) 75 mg Capsule PO (11:39)
--- NOTE | 2019-05-18 15:26 | PC.CHAP ---
Pastoral Care Encounter/Spiritual Assessment Type of Contact [] Declined assistant professor of music visit [] Patient/Family/Request visit [] Outpatient visit [] Follow-up visit [] Physician referral [] Code/Alert [] Routine visit [] Staff referral [] Actively dying [] Patient sleeping [] Family support [] [] Out of room [] Palliative care [] [] Receiving care in room [] Pre-surgical visit [] Trauma [] Long length of stay [x] ICU visit [] Other: Relational/Emotional Strength [x] Patient feels connected with others/family/visitors/staff [] Distress [] Loneliness/isolation [] Abandonment Spirituality of Patient [x] Person of Catarina [] Attends Adventist of their Catarina [x] Believes in Prayer [] Reads Bible or Mosque materials [] There are Spiritual issues to be addressed Baler Operator Interventions [x] Prayer [x] Active listening [x Non-anxious presence [x] Spiritual/emotional support [] Crisis/trauma care [] Spiritual counseling [] Bereavement support [] Provided bereavement packet [] Provided Bible/devotional materials [] Provided toy/stuffed animal, coloring book to patient or family member [] Provided Communion [x] Anointing/[place] [] Salvation [] Completed spiritual assessment [] Other: Impact on Illness or Injury [] Angry [] Fearful [x] Anxious [] Often cries [] Exhaustion [] Unable to work [] Unable to attend yarsanism [] Unable to walk/stand [] Unable to read [] Unable to drive [] Unable to eat/drink [] Unable to sleep [] Unable to be with family [] Patient intubated [] Other: Summary Patient was open to prayer and visit Time spent with patient 8
--- NOTE | 2019-05-18 22:49 | PC.NURSE ---
REMAINING FENTANYL DRIP WASTED WITH AGNIESZKA GAMBLE. 48 MLS WASTED.
[2019-05-19] VITALS (31 sets, daily range): BP systolic 94–136; BP diastolic 53–77; PULSE 69–104; RESP 16–28; TEMP 36.5–37.2; O2SAT 86–95
[2019-05-19] MEDS: ipratropium-albuterol 3 mL Neb INHALATION ×5 (04:06→20:06)
[2019-05-19] MEDS: venlafaxine ER (24HR) 75 mg Capsule PO (05:03)
[2019-05-19] MEDS: isosorbide mononitrate ER 30 mg Tablet PO (05:03)
--- NOTE | 2019-05-19 06:17 | PC.NURSE ---
SHIFT SUMMARY PT HAS BEEN ALERT AND ORIENTATED. PT HAS HAD NO COMPLAINTS OF CHEST PAIN. PT HAS HAD ADEQUATE URINE OUTPUT. PT IV REMAINS PATENT. PT HAS HAD NO COMPLAINTS. PT REMAINS ON NASAL CANNULA.
--- NOTE | 2019-05-19 07:22 | PM.PN ---
Subjective Subjective: Interval history: Looks very good this morning. No complaints. Rested well last night. We will DC Garza catheter. We will check her O2 saturation whether without oxygen at rest and with ambulation. Vitals/I&O/Wt Last Vital Signs Temp 98.9 F 05/19/19 03:34 Pulse 92 05/19/19 06:00 Resp 20 H 05/19/19 06:00 BP 104/66 05/19/19 06:00 Pulse Ox 93 05/19/19 06:00 05/18/19 05/19/19 05/19/19 22:59 06:59 14:59 Intake Total 544.04 / 994.809 320 / 1314.809 Output Total 1700 / 1700 2000 / 3700 Balance -1155.96 / -705.191 -1680 / -2385.191 Physical Exam Resp: COMMON NORMALS: normal respiratory effort, no retractions, no use of accessory muscles and clear to auscultation bilaterally (There are light intermittent late expiratory wheezes noted.) AUSCULTATION: clear to auscultation bilaterally (There are light intermittent late expiratory wheezes noted.) Cardio: COMMON NORMALS: regular rate, regular rhythm and S1 normal heart sound RATE: regular rate RHYTHM: regular rhythm HEART SOUNDS: S1 normal Urinary Catheter Management^: Garza: Cath Placed During This Visit: yes Urethral Indwelling: Yes Reason for Continuing Indwelling Catheter: Accurate Measurement of Urinary Output in Critically Ill Patients Urinary Catheter Date of Insertion: 05/17/19 Data : 05/18/19 04:30 05/18/19 04:30 Micro: Microbiology 05/17/19 08:50 Gram Stain - Final Sputum - Endotracheal Tube Aspirate Sputum Culture - Preliminary A&P Assessment and plan (1) Chronic obstructive pulmonary disease with bronchospasm: Will await the recommendation of Dr. Maurice. If continued hospitalization is recommended, I will plan to transfer to the [facility]. If cleared by him, I will plan for discharge and continued outpatient management of her pulmonary status for optimization prior to a repeat attempt for scheduling of CABG. I greatly appreciate Dr. Maurice's expertise and oversight. Status: Acute Code(s): J44.9 - Chronic obstructive pulmonary disease, unspecified Attestations Medical Necessity Statement*: COPD exacerbation with severe bronchospasm Time Spent in Patient Care: less than 15 minutes Coding Level of Care Code Acute Creative Writing English Professor for [facility] Diagnoses Chronic obstructive pulmonary disease with bronchospasm J44.9
[2019-05-19] MEDS: atorvastatin 40 mg Tablet 20 MG PO (08:36)
[2019-05-19] MEDS: diazePAM 5 mg Tablet 2.5 MG PO ×2 (08:36→17:55)
[2019-05-19] MEDS: pantoprazole 40 mg SDV IVP (08:36)
[2019-05-19] MEDS: atenolol 50 mg Tablet 25 MG PO (08:36)
[2019-05-19] MEDS: levofloxacin-dextrose 5 % 750 MG/150 ML PREMIX 150 MG IV (08:37)
[2019-05-19] MEDS: enoxaparin 40 mg/0.4 mL Syringe SUBCUT (08:37)
[2019-05-19] MEDS: budesonide 0.5 mg/2 mL Neb INHALATION ×2 (09:13→20:06)
--- NOTE | 2019-05-19 11:47 | PM.PN ---
Subjective Subjective: Interval history: The patient was seen and examined today. She is doing remarkably well. The patient is breathing at baseline right now. At home, the patient uses albuterol inhaler as needed and albuterol nebulizer as needed. She used to use steroid inhaler in the past however she has not used it in more than a year. The patient unfortunately continues to smoke. I had an extensive discussion with her. I have informed her that she needs to quit smoking as this will help her in the short-term through the surgical procedure in the long-term for her overall lung function. The patient states that she has not smoked in the past few days and I stressed that this might be the right time for her to quit smoking completely. Medications: Reviewed: Yes Vitals/I&O/Wt Last Vital Signs Temp 98.9 F 05/19/19 03:34 Pulse 88 05/19/19 11:22 Resp 18 05/19/19 11:19 BP 124/74 05/19/19 10:00 Pulse Ox 91 05/19/19 11:19 05/18/19 05/19/19 05/19/19 22:59 06:59 14:59 Intake Total 544.04 / 994.809 320 / 1314.809 240 / 240 Output Total 1700 / 1700 2000 / 3700 250 / 250 Balance -1155.96 / -705.191 -1680 / -2385.191 -10 / -10 Physical Exam Narrative: EXAM NARRATIVE: General: Patient is awake alert and oriented, at baseline Neck: No JVD, no cervical or supraclavicular lymphadenopathy. Respiratory: Inspection: Barrel-shaped chest Palpation: Trachea is mildly deviated to the right Percussion: Bilateral tympanic percussion note both anterior and posteriorly Auscultation: Reduced breath sound bilaterally, vesicular breath sound with prolonged expiration, no crackles or wheezing wheezing, occasional rhonchi Cardiovascular: Regular rate and rhythm, S1-S2 present, no murmur, no peripheral edema. Abdomen: Soft, nontender, nondistended, positive bowel sound Musculoskeletal: No obvious joint deformity Skin: No rash Neuro: Patient is awake alert and oriented, no gross motor deficit Urinary Catheter Management^: Garza: Cath Placed During This Visit: yes Urethral Indwelling: Yes Reason for Continuing Indwelling Catheter: Accurate Measurement of Urinary Output in Critically Ill Patients Urinary Catheter Date of Insertion: 05/17/19 Data : 05/18/19 04:30 05/18/19 04:30 Micro: Microbiology 05/17/19 08:50 Gram Stain - Final Sputum - Endotracheal Tube Aspirate Sputum Culture - Preliminary Other data: All the patient's data have been reviewed. A&P Assessment and plan (1) Acute and chronic respiratory failure with hypercapnia: Patient is doing well. At baseline. The patient has evidence of hypercapnic respiratory failure which needs to be evaluated as outpatient. She might require noninvasive ventilator for long-term use down the line. I have cut down her steroid dose to prednisone 40 mg daily for 3 more days starting tomorrow morning. I have also switched her IV Levaquin to oral Levaquin starting tomorrow for 3 more days. Status: Acute Code(s): J96.22 - Acute and chronic respiratory failure with hypercapnia (2) Acute exacerbation of chronic obstructive pulmonary disease (COPD): Patient is on therapy for acute exacerbation of COPD. The patient can be discharged on Symbicort 160/4.5 mcg 2 puff 2 times a day and Spiriva HandiHaler 18 mcg which would be 2 puffs daily. The other option would be Trelegy 1 puff daily. She will also need albuterol inhaler as needed which she probably already has. The patient will need to follow-up with me as outpatient next week. She will need a complete pulmonary function test. I have discussed in detail with the patient the importance of quitting smoking. Hopefully, she will be able to do that. Thank you for letting me participate in this patient's care. Status: Acute Code(s): J44.1 - Chronic obstructive pulmonary disease with (acute) exacerbation Attestations Medical Necessity Statement*: Will defer to the primary team Coding Level of Care Code Acute Manager Mental Health for Peyton Cannon Diagnoses Acute and chronic respiratory failure with hypercapnia J96.22 Acute exacerbation of chronic obstructive pulmonary disease (COPD) J44.1 Time Spent (min) 25
--- NOTE | 2019-05-19 12:11 | PC.CHAP ---
Pastoral Care Encounter/Spiritual Assessment Type of Contact [] Declined side trimmer visit [] Patient/Family/Request visit [] Outpatient visit [] Follow-up visit [] Physician referral [] Code/Alert [x] Routine visit [] Staff referral [] Actively dying [x] Patient sleeping [] Family support [] [] Out of room [] Palliative care [] [] Receiving care in room [] Pre-surgical visit [] Trauma [] Long length of stay [x] ICU visit [] Other: Relational/Emotional Strength [] Patient feels connected with others/family/visitors/staff [] Distress [] Loneliness/isolation [] Abandonment Spirituality of Patient [] Person of Catarina [] Attends Temple of their Catarina [] Believes in Prayer [] Reads Bible or Congregation materials [] There are Spiritual issues to be addressed Filter Changing Technician Interventions [] Prayer [] Active listening [] Non-anxious presence [] Spiritual/emotional support [] Crisis/trauma care [] Spiritual counseling [] Bereavement support [] Provided bereavement packet [] Provided Bible/devotional materials [] Provided toy/stuffed animal, coloring book to patient or family member [] Provided Communion [] Anointing/[employer] [] Salvation [x] Completed spiritual assessment [] Other: Impact on Illness or Injury [] Angry [] Fearful [] Anxious [] Often cries [] Exhaustion [] Unable to work [] Unable to attend synagogue [] Unable to walk/stand [] Unable to read [] Unable to drive [] Unable to eat/drink [] Unable to sleep [] Unable to be with family [] Patient intubated [] Other: Summary Time spent with patient
--- NOTE | 2019-05-19 16:44 | PC.NURSE ---
Transfer to floor Patient transferred to [facility] via wheelchair by nurse. Report called to MARIA ISABEL Maciel. Nurse in room upon arrival. Patient oriented to room and call light within reach. All belongings sent with patient.
[2019-05-19] MEDS: chlorhexidine gluconate 0.12% Btl 473 mL 15 ML MUCOUS MEM (17:54)
[2019-05-20] VITALS (12 sets, daily range): BP systolic 102–118; BP diastolic 59–69; PULSE 72–86; RESP 17–18; TEMP 36.4–37; O2SAT 90–96
[2019-05-20] MEDS: ipratropium-albuterol 3 mL Neb INHALATION ×4 (00:53→11:18)
[2019-05-20] MEDS: isosorbide mononitrate ER 30 mg Tablet PO (05:56)
[2019-05-20] MEDS: levoFLOXacin 750 mg Tablet PO (05:56)
[2019-05-20] MEDS: venlafaxine ER (24HR) 75 mg Capsule PO (05:56)
[2019-05-20] MEDS: budesonide 0.5 mg/2 mL Neb INHALATION (07:13)
--- NOTE | 2019-05-20 07:13 | P.DS_ITS ---
Discharge Providers Date of Admission: 05/17/19 08:05 Date of Discharge: May 20, 2019 Attending Provider at Admission: Yvon Coleman MD Attending Provider at Discharge: Yvon Coleman MD Primary Care Provider: VELMA Minor Diagnoses at Discharge Discharge Diagnosis (1) Acute and chronic respiratory failure with hypercapnia: Status: Acute Problem details: Resolved (2) Chronic obstructive pulmonary disease with bronchospasm: Status: Acute Problem details: Currently under oversight and management of Dr. Maurice from our pulmonary medicine service. She will follow-up with him in 2 weeks after discharge for continued optimization of her pulmonary status prior to attempt at rescheduling for CABG (3) CAD (coronary artery disease): Status: Acute Problem details: Coronary artery disease with surgical revascularization recommended. Activity will be limited while we attempt to maximize her pulmonary status prior to rescheduling for surgery Reason for Visit Reason for Visit: Reason For Visit: CABAGE Hospital Course Hospital Course: Ms. Kitchen was electively admitted for planned coronary artery bypass grafting with severe coronary disease. She developed acute bronchospasm with air trapping during induction of anesthesia. This required canceling of the planned surgery and medical management in the ICU where she required dilatory support at school late the following day. She has been evaluated by Dr. Maurice from pulmonary medicine and appropriate inhaler and steroid support provided. She will need continued outpatient management and optimization of her pulmonary status prior to attempting to reschedule for coronary bypass grafting. Discharge Summary: At discharge, she is in stable condition. We will attempt to assist with obtaining appropriate medications for her continued treatment for her pulmonary disease. As well, she will need oxygen, 2 L nasal cannula in the immediate discharge period Physical Exam Resp: COMMON NORMALS: normal respiratory effort and clear to auscultation bilaterally EFFORT & INSPECTION: Yes able to speak in complete sentences AUSCULTATION: clear to auscultation bilaterally Cardio: COMMON NORMALS: regular rate, regular rhythm, S1 normal heart sound and no murmurs RATE: regular rate RHYTHM: regular rhythm HEART SOUNDS: S1 normal Urinary Catheter Management^: Garza: Cath Placed During This Visit: yes Urethral Indwelling: Yes Reason for Continuing Indwelling Catheter: Accurate Measurement of Urinary Output in Critically Ill Patients Urinary Catheter Date of Insertion: 05/17/19 Discharge Data Data Completed and Pending: Completed Studies During Hospitalization Category Date Time Status XR chest 1V ced ble [id number] Routine Exams 05/13/19 08:15 Completed XR chest 1V ced ble [id number] Routine Exams 05/18/19 06:00 Completed XR chest 1V ced ble [id number] Stat Exams 05/17/19 08:10 [place] [id number] Routi ne Ultrasound 05/17/19 05:00 Completed Pending at discharge Category Date Time Status Complete Crossmat ch Routine Lab 05/13/19 08:45 Results Leukocyte Reduced RBC Routine Lab 05/13/19 08:45 Results Leukrd/Plat Phere sis 1st Cont Routi ne Lab 05/13/19 08:45 Results Retype for XM Rou lucia Lab 05/13/19 08:45 Results Sputum Culture an d Gram Stain Stat Lab 05/17/19 08:50 Results Type and Screen - Cardiac Routine Lab 05/13/19 08:45 Results Vitals: Last Vital Signs Temp 97.6 F 05/20/19 03:00 Pulse 82 05/20/19 04:19 Resp 18 05/20/19 04:11 BP 105/62 05/20/19 03:00 Pulse Ox 92 05/20/19 04:19 Discharge Plan Discharge Patient Disposition: Home, Self-Care Condition: Stable Prescriptions: Continued isosorbide mononitrate 30 mg tablet extended release 24 hr 30 mg PO QAM RF: 0 simvastatin 20 mg tablet 20 mg PO QDAY RF: 0 ergocalciferol (vitamin D2) 50,000 unit tablet 50,000 unit PO .weekly RF: 0 epinephrine [EpiPen] 0.3 mg/0.3 mL auto-injector 0.3 mg IM ONCE RF: 0 albuterol sulfate [ProAir HFA] 90 mcg/actuation HFA aerosol inhaler 2 puff INHALATION Q6H PRN (Reason: soa) RF: 0 fluticasone propionate [Flonase Allergy Relief] 50 mcg/actuation spray,suspension 1 spray INTRANASAL BID RF: 0 atenolol 25 mg tablet 25 mg PO DAILY RF: 0 albuterol sulfate 2.5 mg /3 mL (0.083 %) solution for nebulization 2.5 mg INHALATION Q6H RF: 0 venlafaxine 75 mg capsule,extended release 24hr 75 mg PO QAM RF: 0 nitroglycerin [Nitrostat] 0.4 mg tablet, sublingual 0.4 mg SUBLINGUAL Q5M PRN (Reason: Chest Pain) RF: 0 diazepam 5 mg tablet See Rx Instructions PO .COMPLEX Qty: 35 RF: 2 Discharge Orders: Discharge Order (Routine); Ordered 05/20/19 Ordered By: Yvon Coleman Other Ambulatory Orders: DME: Oxygen (Order) Location: None Selected Ordered By: Darshan Maurice Referrals: Darshan Maurice MD [Physician] - 2 weeks Discharge Diet: Usual diet Discharge Activity: Resume usual activity Activity Restrictions/Additional Instructions: NO SMOKING Discharge Attestations Time Spent in Discharge Care*: greater than 30 min Specific Discharge Activities: Specific discharge activities: educating patient, discussing with case manager/social workers/dc planners, documenting/other paperwork and evaluating patient/reviewing data Time Spent in Smoking Cessation: Time spent discussing smoking cessation with patient: 3 to 10 minutes Details of Smoking Cessation Education: .Again reiterated the need to attempt to refrain from all tobacco use given her marked pulmonary dysfunction Status at Discharge: Cognitive status at discharge: cognitively intact , Behavioral status at discharge: cooperative , Functional status at discharge: independent ambulation Overall status at discharge: patient is back to baseline Quality Metrics Clinical Quality Measures During this hospital stay, did patient experience: None Coding Level of Care Code Acute Light Armored Reconnaissance Officer for Malorieg Fwd Exam Expanded Problem Focused Diagnoses Acute and chronic respiratory failure with hypercapnia J96.22 Chronic obstructive pulmonary disease with bronchospasm J44.9 CAD (coronary artery disease) I25.10
--- NOTE | 2019-05-20 09:07 | P.PN_ITS ---
Subjective Subjective: Interval history: The patient was seen and examined this morning. She is doing well. She is back to baseline now. She complains of mild tenderness in the right upper posterior chest. The plan is for her to go home today. I have emphasized the importance of quitting smoking to her again. She stated that she could not make any promises but she will try her best. I have informed her that if she can quit smoking till her surgery is over that would help tremendously in the perioperative period. Medications: Reviewed: Yes Vitals/I&O/Wt Last Vital Signs Temp 98.6 F 05/20/19 07:00 Pulse 75 05/20/19 07:19 Resp 18 05/20/19 07:13 BP 118/69 05/20/19 07:00 Pulse Ox 93 05/20/19 07:13 05/19/19 05/20/19 05/20/19 22:59 06:59 14:59 Intake Total 240 / 700 Balance 240 / 450 Physical Exam Narrative: EXAM NARRATIVE: General: Patient is awake alert and oriented, no distress at all Neck: No JVD, no cervical or supraclavicular lymphadenopathy. Respiratory: Inspection: Barrel-shaped chest Palpation: Trachea is mildly deviated to the right Percussion: Bilateral tympanic percussion note both anterior and posteriorly Auscultation: Reduced breath sound bilaterally, vesicular breath sound with prolonged expiration, no crackles or wheezing wheezing, minimal rhonchi Cardiovascular: Regular rate and rhythm, S1-S2 present, no murmur, no peripheral edema. Abdomen: Soft, nontender, nondistended, positive bowel sound Musculoskeletal: No obvious joint deformity Skin: No rash Neuro: Patient is awake alert and oriented, no gross motor deficit Urinary Catheter Management^: Garza: Cath Placed During This Visit: yes Urethral Indwelling: Yes Reason for Continuing Indwelling Catheter: Accurate Measurement of Urinary Output in Critically Ill Patients Urinary Catheter Date of Insertion: 05/17/19 Data : 05/18/19 04:30 05/18/19 04:30 Micro: Microbiology 05/17/19 08:50 Gram Stain - Final Sputum - Endotracheal Tube Aspirate Sputum Culture - Preliminary A&P Assessment and plan (1) Acute and chronic respiratory failure with hypercapnia: Patient is at baseline. She is going to go home today. Her family is coming to pick her up. The patient will receive antibiotic and steroid to complete a 5-day course. She does have evidence of hypercapnia as mentioned in my previous note. When she comes back to see me in the office she will most likely qualify for noninvasive ventilator. Status: Acute Code(s): J96.22 - Acute and chronic respiratory failure with hypercapnia (2) Acute exacerbation of chronic obstructive pulmonary disease (COPD): I have written the prescription for Symbicort and Spiriva for the patient. When the patient comes back to see me in the office she is current need a pulmonary function test and optimization of her COPD prior to her surgical intervention. The plan has been discussed in detail with the nurse. Status: Acute Code(s): J44.1 - Chronic obstructive pulmonary disease with (acute) exacerbation Attestations Medical Necessity Statement*: Will defer to the primary team Coding Level of Care Code Acute Global Mobility Specialist for Peyton Cannon Diagnoses Acute and chronic respiratory failure with hypercapnia J96.22 Acute exacerbation of chronic obstructive pulmonary disease (COPD) J44.1
[2019-05-20] MEDS: atenolol 50 mg Tablet 25 MG PO (10:24)
[2019-05-20] MEDS: predniSONE 20 mg Tablet 40 MG PO (10:26)
[2019-05-20] MEDS: atorvastatin 40 mg Tablet 20 MG PO (10:26)
[2019-05-20] MEDS: pantoprazole DR 40 mg Tablet PO (10:27)
[2019-05-20] MEDS: diazePAM 5 mg Tablet 2.5 MG PO (10:28)
[2019-05-20] MEDS: chlorhexidine gluconate 0.12% Btl 473 mL 15 ML MUCOUS MEM (10:28)
[2019-05-20] MEDS: enoxaparin 40 mg/0.4 mL Syringe SUBCUT (10:29)
== END 2019-05-20 15:02 | disposition home or self-care (01) | DRG 302 ==
LOC: ICU 08:06 → MEDSURG 05-19 17:04
PROVIDERS: Internal Medicine Critical Care Medicine; Admitting Provider Thoracic Surgery (Cardiothoracic Vascular Surgery); Family Provider Family Medicine; PCP Nurse Practitioner Family; Visit Provider Thoracic Surgery (Cardiothoracic Vascular Surgery)
PROC: 5A1945Z Respiratory Ventilation, 24-96 Consecutive Hours (ICD-10-PCS; principal; 2019-05-17 07:00)
DX: I25.10 Atherosclerotic heart disease of native coronary artery without angina pectoris (principal); J96.22 Acute and chronic respiratory failure with hypercapnia; F17.210 Nicotine dependence, cigarettes, uncomplicated; I10 Essential (primary) hypertension; E78.00 Pure hypercholesterolemia, unspecified; I73.9 Peripheral vascular disease, unspecified; J98.01 Acute bronchospasm; Z79.899 Other long term (current) drug therapy; Z88.2 Allergy status to sulfonamides; Z88.8 Allergy status to other drugs, medicaments and biological substances; Z53.8 Procedure and treatment not carried out for other reasons; Z88.6 Allergy status to analgesic agent
CPT/HCPCS: 12345; 36415; 36416; 36600; 51702; 71045; 80048; 80051; 80076; 81001; 82803; 82810; 82962; 83986; 84439; 84443; 85025; 85610; 85730; 86850; 86900; 87070; 87205; 93970; 94002; 94003; 94640; 94644; 94645; 94799; 96372; 96375; A4570; C9113; J1650; J1956; J2001; J2250; J2370; J2704; J2920; J3010; J3490; J3535; J7030; J7512; J7611; J7626

== ENCOUNTER → 2019-08-04 08:08 | Outpatient (BNVA) | payer MEDICAID, SELFPAY | PROVIDERS: Family Provider Family Medicine; PCP Nurse Practitioner Family; Visit Provider Psychiatry & Neurology Psychiatry | DX: F41.0 Panic disorder [episodic paroxysmal anxiety] (principal); F17.210 Nicotine dependence, cigarettes, uncomplicated | CPT/HCPCS: 99214 ==

== ENCOUNTER → 2019-10-21 08:06 | Outpatient (BNVA) | payer MEDICAID, SELFPAY | PROVIDERS: Family Provider Family Medicine; PCP Nurse Practitioner Family; Visit Provider Psychiatry & Neurology Psychiatry | DX: F41.0 Panic disorder [episodic paroxysmal anxiety] (principal); F17.210 Nicotine dependence, cigarettes, uncomplicated | CPT/HCPCS: 99213 ==

== ENCOUNTER → 2019-12-29 14:13 | Outpatient (BNVA) | payer MEDICAID, SELFPAY | PROVIDERS: Family Provider Family Medicine; PCP Nurse Practitioner Family; Visit Provider Nurse Practitioner Family | DX: J44.9 Chronic obstructive pulmonary disease, unspecified (principal); E55.9 Vitamin D deficiency, unspecified; I10 Essential (primary) hypertension; R73.9 Hyperglycemia, unspecified | CPT/HCPCS: 80053; 80061; 82306; 83036; 84443; 85025 ==

== ENCOUNTER → 2020-01-04 07:29 | Outpatient (BNVA) | payer MEDICAID, SELFPAY | PROVIDERS: Family Provider Family Medicine; PCP Nurse Practitioner Family; Visit Provider Psychiatry & Neurology Psychiatry | DX: F41.0 Panic disorder [episodic paroxysmal anxiety] (principal); F17.210 Nicotine dependence, cigarettes, uncomplicated | CPT/HCPCS: 99213 ==

== ENCOUNTER → 2020-05-12 09:18 | Outpatient (BNVA) | payer BC, SELFPAY | PROVIDERS: Family Provider Family Medicine; PCP Nurse Practitioner Family; Visit Provider Psychiatry & Neurology Psychiatry | DX: F41.0 Panic disorder [episodic paroxysmal anxiety] (principal); F17.210 Nicotine dependence, cigarettes, uncomplicated | CPT/HCPCS: 99214 ==

== ENCOUNTER → 2020-06-22 12:24 | Outpatient (BNVA) | payer BC, SELFPAY | PROVIDERS: Family Provider Family Medicine; PCP Nurse Practitioner Family; Visit Provider Internal Medicine Cardiovascular Disease | DX: I10 Essential (primary) hypertension (principal); I25.10 Atherosclerotic heart disease of native coronary artery without angina pectoris; Z20.822 Contact with and (suspected) exposure to COVID-19 | CPT/HCPCS: 87635 ==

== ENCOUNTER 2020-06-27 08:23 | Day surgery (SDC) | payer BC, MEDICAID, SELFPAY ==
[2020-06-22 12:08] LABS: Basophils # 0.1 10^3/uL (0.0-0.1); Basophils % 0.6 %; Eosinophils # 0.1 10^3/uL (0.0-0.8); Eosinophils % 1.4 %; Hematocrit 45.6 % (37.0-47.0); Hemoglobin 14.9 g/dL (11.5-15.3); Lymphocytes # 3.6 10^3/uL (0.8-4.8); Lymphocytes % 35.9 %; Mean Corpuscular HGB Conc 32.7 g/dL (30.0-36.0); Mean Platelet Volume 9.3 fL (7.4-10.4); Monocytes # 0.7 10^3/uL (0.2-0.9); Monocytes % 6.7 %; Neutrophils # 5.55 10^3/uL (1.8-7.7); Neutrophils % 55.1 %; Nucleated Red Blood Cells % 0 %; Platelet Count 284 10^3/cmm (130-400); Red Cell Distribution Width 13.1 % (12.1-15.1); White Blood Count 10.1 10^3/uL (4.0-10.0)
[2020-06-22 12:17] LABS: INR 0.95 (0.83-1.21); Prothrombin Time (Patient) 12.9 Seconds (12.0-15.1)
[2020-06-22 12:21] LABS: Anion Gap 12.5 (5-19); Blood Urea Nitrogen 9 mg/dL (6-20); Calcium 9.4 mg/dL (8.5-10.5); Carbon Dioxide 30 mmol/L (22-29); Chloride 97 mmol/L (98-107); Glomerular Filtration Rate 126.7 mL/min (90-130); Glucose 97 mg/dL (65-115); Osmolality Calculated 279 mOsm/kg (285-295); Potassium 4.5 mmol/L (3.5-5.1); Sodium 135 mmol/L (136-145)
[2020-06-27] VITALS (17 sets, daily range): BP systolic 99–127; BP diastolic 55–75; PULSE 67–76; RESP 14–28; TEMP 36.6; O2SAT 90–95; BMI 21.9
--- NOTE | 2020-06-27 07:30 | XACV_ITS ---
Exam Room: 1 Ht: 168 cm Wt: 62 kg BSA: 1.70 m2 Gender: Female : 1960 Any Known Allergies: Other Exam Priority: Routine Procedure(s): Procedure Description: Diagnostic procedure Procedure Description: Left Heart Catheterization Procedure Description: Left ventriculography Procedure Description: Coronary Angiography Diagnostic Findings * LM has 0% stenosis. * mLAD: Severe 100% stenosis, MARYANNE: 0 flow. * pCIRC: Severe 80% stenosis, MARYANNE: 3 flow. * pRCA to mRCA: Severe 100% stenosis, MARYANNE: 0 flow. * 3rd OM to dLAD collateralization. * Lat 2nd OM to 3rd SP collateralization. * dCIRC to RPAV collateralization. * dCIRC to CIRC AV collateralization. * Coronary angiography shows right dominance. Conclusions 1. There is severe coronary artery disease with three vessel disease. 2. All park are normal. 3. Normal left ventricular systolic function. Ejection fraction of 65%. Recommendations * 1-Return to ICU for close monitoring and routine PCI care 2-Continue IV heparin drip as per ACS protocol 3-Hold Plavix for possible CABG 4-Statin with LDL goal of 70 mg/dl, aspirin 81 mg p.o. daily for life long 5-CT surgery referal for CABG, patient was already seen by the surgeon in [place] at home 6-Optimal medical management 7-Follow up with Dr. Juarez in four weeks and establish care with primary care physician, follow up with CT surgery.. Diagnostic RX Recommendation: CABG Ventriculography Ejection Fraction: 65.0 % Left Ventriculography Findings: * No significant wall motion abnormality noted, normal left ventricle ejection fraction 65%. Pressures Phase:Rest AO : 108 / 69 ( 83 ) @ 4:16:00 AM 88 / 67 ( 78 ) @ 4:19:00 AM 104 / 66 ( 82 ) @ 4:27:00 AM 107 / 67 ( 83 ) @ 4:27:00 AM LV : 108 / 11 / @ 4:25:00 AM 110 / 10 / @ 4:26:00 AM 112 / 10 / @ 4:27:00 AM Valves Phase:DefaultPhase AV : 6.0 @ 9:35:15 AM AV Mean Gradient: 9.0 @ 9:35:15 AM Clinical Evaluation EBL: 5mL-10mL Procedural Details Procedure Consent Obtained. Aaron Hernandez RRT was relieved by Aaron Hernandez RRT as monitoring person. Pre-Procedure Time Out. Identified patient by full name and date of as verbalized by the patient/guarantor. Does the consent match the physician's order: Yes. Accurate & Complete Informed Consent: Yes. Inpatient/Outpatient History & Physical on Chart: Yes. If H&P is completed, is and addenduem needed: No; If yes, is the addendum complete: N/A. Visualize and Verify Site with Patient/Guarantor: N/A. Relevant Radiology Images available: N/A. Pre-op teaching completed and patient verbalized understanding. The risks, benefits, and alternatives of sedation and/or procedure were discussed by physician. The patient agrees to continue. Procedure started. [facility] Clinical Fraility Score: 4: Vulnerable. It Specialist Indications: Worsening Angina. Chest Pain Symptom Assessment: Typical Angina Symptoms. Cardiovascular Instability: No, if yes, Persistant Ischemic Symptoms. Physician arrived. Equipment: 6F - Radial. Cardiac Cath Pack. ACIST Manifold Kit Model BT 2000. Heparinized Saline (2 units/mL), 1000 mL bag. Correct patient, site and procedure confirmed by cath team. PERRLA. Strong, equal hand hand candle molder bilaterally. Lungs clear x 5 lobes. IV Site on Arrival: 20 gauge in the left anticubital. IV Fluids: 0.9% NaCl at KVO. 0 mL infused prior to dental laboratory worker. Pre Procedural Pulses: bilateral dorsalis pedis was 1+. Pre Procedural Pulses: bilateral posterior tibial was Doppled. Pre Procedural Pulses: bilateral radial was 3+. Oxygen started at 2liters/min via nasal canula. bilateral groins was prepped with chloroprep then draped in the usual sterile fashion. right radial was prepped with chloroprep then draped in the usual sterile fashion. Baseline sample Acquired. HR: 74 BPM. Physician scrubbed in. Immediate Pre-Procedure Time Out. Correct Patient: Yes; Correct Procedure: Yes; Correct Site: Yes; Correct Patient Position: Yes; Correct Supplies: Yes; Dried Flammable Prep: Yes; Blood Products Available: N/A;. Lidocaine 1% infiltrated to the right radial. Arterial access obtained. A 5 luxembourger TIG catheter in over wire. Multiple views taken of left coronary artery. Catheter redirected to the RCA. Multiple views taken of right coronary artery. Catheter removed over the exchange wire. A 5 luxembourger Angled Pig catheter in over wire. EDP Sample taken: LV 108/11,25; HR: 67 BPM; SpO2: 98%. LV gram performed in AP @ mL/second for a total of mL. LV gram performed in WERNER @ 10 mL/second for a total of 30 mL. EDP Sample taken: LV 110/10,25; HR: 66 BPM; SpO2: 98%. Pullback taken: LV 112/10,26; AO 104/66(82); Mean: 9mmHg, Peak to Peak: 6mmHg, SEP: 18sec/min; HR: 65 BPM; SpO2: 99%. Catheter removed over the exchange wire. Physician scrubbed out. A TR Band was successful obtaining hemostatsis at the Right Radial artery insertion site. TR band placed. Hemostasis obtained. Post Procedure: Pulses reassessed and unchanged. PERRLA. Strong, equal hand hand candle molder bilaterally. No VTE prophylaxis required. Contrast type used: Visipaque 320 mgI/mL, 500 mL bottle. Post-op diagnosis: multivessel CAD. Medication's Wasted: Lidocaine 1% = 18 mL. Medication's Wasted: Nitro = 49.8 mg. Medication's Wasted: Heparin = 1000 units. Medication's Wasted: Other = versed 1 mg. Medication's Wasted: Other = fentanyl 75 mcg. Total IV fluids: 80 mL. Complications: none. Estimated blood loss: 5mL-10mL. Procedure completed. Patient transferred by wheelchair to CPRU. Vital chart was stopped. Access Site Site: Right Radial artery Sheath Size: 6 Fr Hemostasis Method: TR Band Hemostasis Success: Successful Procedure Medications Start: 9:01 AM Stop: 9:01 AM Medication: Versed Amount: 1 mg Route: I.V. Start: 9:01 AM Stop: 9:01 AM Medication: Fentanyl Amount: 50 mcg Route: I.V. Start: 9:09 AM Stop: 9:09 AM Medication: Versed Amount: 1 mg Route: I.V. Start: 9:09 AM Stop: 9:09 AM Medication: Fentanyl Amount: 50 mcg Route: I.V. Start: 9:14 AM Stop: 9:14 AM Medication: Nitrogylcerin Amount: 200 mcg Route: I.A. Start: 9:14 AM Stop: 9:14 AM Medication: Versed Amount: 1 mg Route: I.V. Start: 9:14 AM Stop: 9:14 AM Medication: Fentanyl Amount: 25 mcg Route: I.V. Start: 9:16 AM Stop: 9:16 AM Medication: Heparin Amount: 5000 units Route: I.V. I, the attending physician, have reviewed and verified all procedure medications. Yes, all medications given per verbal order History/Risk Factors Hypertension: Yes Dyslipidemia: No Peripheral Arterial Disease (PAD): Yes Myocardial Infarction ([place]): No Obesity: No Renal Disease: No Tobacco Use: Current/Recent(w/in 1 year) Prior Interventions PCI: No CABG: No Valve Surgery: No Report Signatures Finalized by Brina Juarez MD on 07/08/2020 03:10 PM
[2020-06-27] MEDS: diphenhydrAMINE 50 mg Capsule PO (08:43)
--- NOTE | 2020-06-27 09:00 | P.HP_ITS ---
Same Day Surgery H&P Indication for Procedure/HPI DATE OF PROCEDURE: June 27, 2020 CHIEF COMPLAINT/INDICATIONFOR SURGICAL PROCEDURE: Left heart cath for possible CABG with history of multivessel coronary artery disease. PREOP DIAGNOSIS: CAD PLANNED PROCEDRUE: Operation Date: 06/27/20 08:30 Proposed Procedures p Cardiac Catheterization 65188 I25.10(Left) - Brina Juarez MD 59-year-old female past medical history significant for multivessel coronary artery disease who was referred nearly more than a year ago for coronary artery bypass surgery due to logistics patient declined the surgery in the past despite of multiple appointments at different places including [facility], [facility] and at [facility] months ago she was referred to [place]. Now she has decided that she will go for coronary artery bypass as she is constantly deteriorating with debilitating angina and worsening of shortness of breath. We have been asked by CT surgeon to perform left heart cath in order to a certain any changes in her lesion before proceeding with surgery. It is the reason patient has been brought in today for left heart cath. Patient has been explained all risk benefit and alternative for the procedure. She understand the risk of urgent emergent bypass, surgery, risk for major minor bleed, risk for arrhythmia, risk for compartment syndrome and worse case scenario . She would like to proceed with it. Medications/Allergies* Home Medications Medication Instructions Recorded Confirmed Type epinephrine 0.3 mg/0.3 mL 0.3 mg IM ONCE 04/07/19 06/26/20 History injection, auto-injector nitroglycerin 0.4 mg sublingual 0.4 mg SUBLINGUAL Q5M PRN 04/07/19 06/26/20 History tablet herbal drugs tab PO 07/26/19 05/31/20 History Allergies/Adverse Reactions Allergy/AdvReac Type Severity Reaction Status Date / Time bee venom protein (honey bee) Allergy Intermediate pass out Verified 05/31/20 14:08 swell up Sulfa (Sulfonamide AdvReac Severe Severe Verified 05/31/20 14:08 Antibiotics) pains aspirin AdvReac Mild Ulcer Verified 05/31/20 14:08 ibuprofen [From Motrin] AdvReac Mild Ulcer Verified 05/31/20 14:08 tramadol AdvReac Mild Nauseous Verified 05/31/20 14:08 Pertinent History/Comorbid Conditions* Medical History (Updated 01/20/20 @ 14:44 by Darshan Maurice MD) CAD (coronary artery disease) Coronary artery disease with surgical revascularization recommended. Activity will be limited while we attempt to maximize her pulmonary status prior to rescheduling for surgery Chronic obstructive pulmonary disease with bronchospasm Currently under oversight and management of Dr. Maurice from our pulmonary medicine service. She will follow-up with him in 2 weeks after discharge for continued optimization of her pulmonary status prior to attempt at rescheduling for CABG Cigarette nicotine dependence COPD (chronic obstructive pulmonary disease) HTN (hypertension) Hypercholesteremia Panic disorder [episodic paroxysmal anxiety] Peripheral Vascular Disease Surgical History (Updated 08/29/19 @ 18:10 by VELMA Minor) S/P dilatation and curettage S/P hysterectomy S/P right heart catheterization S/P tubal ligation Family History (Updated 04/07/19 @ 09:40 by Samantha Holcomb RN) Clotting disorder Cancer Stroke Father Social History Smoking and tobacco status: current every day smoker cigarettes Years cigarettes smoked: 40 [ Other cigarette details: Hx of 1.5 PPD x 40 Years ] Quit status (tobacco): considering quitting Second hand smoke exposure: Yes Alcohol intake: current Lives independently: Yes Household members: spouse Marital status: Current occupational status: disabled Pets and animals: Yes History of recent travel: No Current gender identity: Female Pertinent Exam Findings alert, oriented x 3, clear to auscultation bilaterally and regular rate & rhythm Conscious Sedation Assessment PATIENT ASSESSED PRIOR TO SEDATION, WITH NO CHANGE NOTED: Yes AIRWAY EVAL/ANESTHESIA PLAN: normal airway, see other exam findings, ASA II, Risks, benefits & alternatives of sedation and/or procedure discussed and Patient agrees to continue as planned Recommendations Surgery/Procedure today Coding Level of Care Code Acute Elementary Esl Teacher for Peyton Cannon
--- NOTE | 2020-06-27 10:03 | PC.NURSE ---
recovery received pt from skilled laborer post diagnostic c via wheelchair. pt alert and oriented x3. pt complains of numbness in right hand but of no pain. no hematoma noted. trband dry and intact. right radial pulse palpable. pt educated on the restrictions of right wrist and acknowledged understanding. pt stated she remembers from previous procedures. pt placed on telemetry and and vital to be taken every 15 minutes.
--- NOTE | 2020-06-27 12:30 | PC.NURSE ---
tr band tr band off and site is now lightly wrapped with coban. bandaid under near skin. pt again reminded of restrictions of her wrist. she states she understood.
== END 2020-06-27 13:34 | disposition home or self-care (01) ==
PROVIDERS: PCP Nurse Practitioner Family; Visit Provider Internal Medicine Cardiovascular Disease
DX: I25.10 Atherosclerotic heart disease of native coronary artery without angina pectoris (principal); I10 Essential (primary) hypertension; J44.9 Chronic obstructive pulmonary disease, unspecified; F17.210 Nicotine dependence, cigarettes, uncomplicated; E78.00 Pure hypercholesterolemia, unspecified
CPT/HCPCS: 36415; 80048; 85025; 85610; 93452; C1769; C1887; C1894; J1644; J2250; J3010; J3490; J7030; Q0163; Q9967

== ENCOUNTER → 2020-07-17 07:26 | Outpatient (BNVA) | payer BC, MEDICAID, SELFPAY | PROVIDERS: PCP Nurse Practitioner Family; Visit Provider Psychiatry & Neurology Psychiatry | DX: F41.0 Panic disorder [episodic paroxysmal anxiety] (principal); F17.210 Nicotine dependence, cigarettes, uncomplicated | CPT/HCPCS: 99214 ==

== ENCOUNTER 2020-08-30 13:41 | Outpatient (CLI) | payer BC, MEDICAID, SELFPAY ==
--- NOTE | 2020-08-30 13:52 | USCV_ITS ---
Neeru Kitchen Age: 59 Gender: F : 1960 Exam Date: 08/30/2020 14:08 Ordering Phys: Heraclio Camejo MD Technologist: Shane Mcwilliams Exam Location: [facility] [place] Indication: PRE OP BP: 115 / 74 HR: 74 Rhythm: Sinus Technical Quality: Adequate MEASUREMENTS (Male / Female) Normal Values 2D ECHO LV Diastolic Diameter PLAX 3.3 cm 4.2 - 5.9 / 3.9 - 5.3 cm LV Systolic Diameter PLAX 1.9 cm IVS Diastolic Thickness 1.1 cm 0.6 - 1.0 / 0.6 - 0.9 cm IVS Systolic Thickness 1.4 cm LVPW Diastolic Thickness 0.8 cm 0.6 - 1.0 / 0.6 - 0.9 cm LVPW Systolic Thickness 1.4 cm LVOT Diameter 2.0 cm LV Ejection Fraction 2D Teich 73.2 % LV Ejection Fraction MOD 2C 61.2 % LV Ejection Fraction 2C AL 63.4 % LA Diameter 3.0 cm LA Width 3.4 cm LA Height 4.4 cm RA Width 3.6 cm RA Height 3.5 cm Aorta at Sinotubular Diameter 2.2 cm M-MODE Aortic Annulus Diameter 3.0 cm LA Ao Ratio MM 1.1 DOPPLER AV Peak Velocity 91.0 cm/s LVOT Peak Velocity 87.0 cm/s AV Area Cont Eq vti 3.4 cm squared AV Area Cont Eq pk 3.2 cm squared MV Area PHT 5.0 cm squared Mitral E to A Ratio 0.7 MV E' Velocity 32.0 cm/s Mitral E to MV E' Ratio 6.4 Mitral E to LV E' Lateral Ratio 6.7 Mitral E to LV E' Septal Ratio 6.1 TR Peak Velocity 155.7 cm/s TR Peak Gradient 9.7 mmHg TV Peak E Velocity 80.0 cm/s Right Atrial Pressure 3.0 mmHg Pulmonary Artery Systolic Pressu 12.7 mmHg PV Peak Velocity 77.0 cm/s FINDINGS Left Ventricle Normal left ventricular size. LV systolic function is normal with EF of 55-60%. No regional wall motion abnormalities. Right Ventricle The right ventricle is normal in size and function. Right Atrium The right atrium is normal in size. Left Atrium The left atrium is normal in size. Mitral Valve Structurally normal mitral valve without significant stenosis or prolapse. There is no mitral regurgitation. Aortic Valve Structurally normal aortic valve without significant sclerosis or stenosis. There is no aortic regurgitation. Tricuspid Valve Structurally normal tricuspid valve without significant stenosis or regurgitation. Insufficient TR jet to calculate RVSP Pulmonic Valve Structurally normal pulmonic valve without significant stenosis. There is no pulmonic regurgitation. Pericardium Normal pericardium without effusion. Aorta Normal ascending aorta dimension. CONCLUSIONS Normal left ventricular size. LV systolic function is normal with EF of 55-60% No significant valvular heart disease Compared to prior echocardiogram form 01/07/2019, no significnat changes are noted Timi Stewart MD (Electronically Signed) Final Date: 05 September 2020 23:13 S
--- NOTE | 2020-08-30 13:52 | USCV_ITS ---
Neeru Kitchen Age: 59 Gender: F : 1960 Exam Date: 08/30/2020 14:25 Ordering Phys: Heraclio Camejo MD Technologist: Shane Mcwilliams [place] [facility] [place] [facility] [place]ication: PREOP Risk Factors: Previous Vascular Surgery: Right Brachial BP: / Left Brachial BP: / Right Left Velocity (cm/s) Spectral Plaque Velocity (cm/s) Spectral Plaque Syst/Diast Broadening Syst/Diast Broadening 48.90/ 15.50 Prox CCA 70.70 / 21.80 45.10/ 13.20 Mid CCA 69.10 / 19.40 66.80/ 24.90 Distal CCA 61.40 / 16.30 78.30/ 28.70 Prox ICA 110.30/ 45.10 / Mid ICA 99.40 / 29.50 70.60/ 28.70 Distal ICA 116.50/ 48.20 123.50 ECA 97.00 1.17 ICA/CCA 1.65 Antegrade Vertebral Antegrade 36.50/ 10.10 cm/s 44.00/ 7.90 cm/s Tri Subclavian Tri 71.50 85.40 FINDINGS Moderate heterogeneous plaques at the common carotid artery and proximal ICA on the left side Minimal plaques at the right ICA and bifurcation. Antegrade flow in the vertebral arteries bilaterally The right mid ICA was not visualized/documented Delayed peaking Doppler waveforms in the right ICA. CONCLUSIONS Moderate heterogeneous plaques at the common carotid artery and proximal ICA on the left side with velocity elevation, consistent with less than 50% stenosis at the proximal ICA. Abnormal Doppler waveforms in the right ICA may suggest high- grade stenosis proximally. Technically difficult study Consider CTA, to better evaluate the arteries on the right side No similar previous studies are available for comparison Dr Flor Luevano MD [facility] (Electronically Signed) Final Date: 31 August 2020 09:09 S
--- NOTE | 2020-08-30 13:55 | USCV_ITS ---
Neeru Kitchen Age: 59 Gender: F : 1960 Exam Date: 08/30/2020 14:40 Ordering Phys: Heraclio Camejo MD Technologist: Exam Location: [facility] [place] Indication: PREOP RIGHT LEFT LOWER EXTREMITY Diameter Diameter (cm) (cm) 0.17 High Thigh 0.29 0.18 Mid Thigh 0.29 0.21 Above Knee 0.24 0.21 Below Knee 0.19 0.17 Mid Calf 0.13 0.16 Ankle 0.21 RIGHT LEFT UPPER EXTREMITY The Upper Extremity section is not evaluated at this time Findings Veins appear to be patent and easily compressible No evidence of thrombosis Conclusions 1. Small caliber patent veins bilaterally with no evidence of thrombosis. 2. The venous diameters as mentioned above. In the right lower extremity, the venous segments measured anywhere from 0.16 to 0.21 cm. On the left side, the venous segments were measuring area from 0.19 to 0.29 cm, excluding the mid calf. Dr Flor Luevano MD [facility] (Electronically Signed) Final Date: 30 August 2020 21:13 S
== END 2020-08-30 13:42 | disposition home or self-care (01) ==
LOC: RAD 13:44
PROVIDERS: PCP Nurse Practitioner Family; Visit Provider Surgery Vascular Surgery
DX: I25.10 Atherosclerotic heart disease of native coronary artery without angina pectoris (principal); Z01.810 Encounter for preprocedural cardiovascular examination; I65.22 Occlusion and stenosis of left carotid artery
CPT/HCPCS: 93306; 93880; 93970

== ENCOUNTER → 2020-09-06 11:12 | Outpatient (BNVA) | payer BC, MEDICAID, SELFPAY | PROVIDERS: PCP Nurse Practitioner Family; Visit Provider Nurse Practitioner Family | DX: N39.0 Urinary tract infection, site not specified (principal); R10.2 Pelvic and perineal pain; Z68.21 Body mass index [BMI] 21.0-21.9, adult; F17.210 Nicotine dependence, cigarettes, uncomplicated | CPT/HCPCS: 81003; 87077; 87086; 87184 ==

== ENCOUNTER → 2020-09-13 07:09 | Outpatient (BNVA) | payer BC, SELFPAY | PROVIDERS: PCP Nurse Practitioner Family; Visit Provider Psychiatry & Neurology Psychiatry | DX: F41.0 Panic disorder [episodic paroxysmal anxiety] (principal); F17.210 Nicotine dependence, cigarettes, uncomplicated | CPT/HCPCS: 99213 ==

== ENCOUNTER → 2020-10-20 13:38 | Outpatient (BNVA) | payer BC, MEDICAID, SELFPAY | PROVIDERS: PCP Nurse Practitioner Family; Visit Provider Surgery Vascular Surgery | DX: Z20.822 Contact with and (suspected) exposure to COVID-19 (principal) | CPT/HCPCS: 87635 ==

== ENCOUNTER 2020-11-15 09:59 | Outpatient (CLI) | payer BC, MEDICAID, SELFPAY ==
--- NOTE | 2020-11-15 10:09 | US_ITS ---
WS: [id number] TRANSABDOMINAL PELVIC ULTRASOUND HISTORY: R10.2 - Pelvic and perineal pain COMPARISON: None available. Uterus: Prior hysterectomy. No midline mass or fluid. Neither ovary is identified. There is a large amount shadowing from bowel gas. No adnexal mass or ova ry identified. No fluid. No free fluid in the cul-de-sac. US/US pelvic complete* [id number] IMPRESSION: 1. Study limited as only transabdominal imaging is submitted. Patient refused transvaginal exam at this time. 2. Status post hysterectomy. Uterus and ovaries are not identified. No masses.
== END 2020-11-15 10:00 | disposition home or self-care (01) ==
LOC: RAD 10:07
PROVIDERS: PCP Nurse Practitioner Family; Visit Provider Nurse Practitioner Family
DX: R10.2 Pelvic and perineal pain (principal); Z90.710 Acquired absence of both cervix and uterus
CPT/HCPCS: 76856

== ENCOUNTER → 2020-12-08 09:25 | Outpatient (BNVA) | payer BC, MEDICAID, SELFPAY | PROVIDERS: PCP Nurse Practitioner Family; Visit Provider Psychiatry & Neurology Psychiatry | DX: F41.0 Panic disorder [episodic paroxysmal anxiety] (principal); F17.210 Nicotine dependence, cigarettes, uncomplicated | CPT/HCPCS: 99214 ==

== ENCOUNTER → 2021-06-11 16:16 | Outpatient (BNVA) | payer BC, MEDICAID, SELFPAY | PROVIDERS: PCP Nurse Practitioner Family; Visit Provider Nurse Practitioner Family | DX: I10 Essential (primary) hypertension (principal); E55.9 Vitamin D deficiency, unspecified | CPT/HCPCS: 80053; 80061; 82306; 82607; 83735; 85025 ==

== ENCOUNTER → 2021-06-29 12:33 | Outpatient (BNVA) | payer BC, MEDICAID, SELFPAY | PROVIDERS: PCP Nurse Practitioner Family; Visit Provider Psychiatry & Neurology Psychiatry | DX: F41.0 Panic disorder [episodic paroxysmal anxiety] (principal); F17.210 Nicotine dependence, cigarettes, uncomplicated | CPT/HCPCS: 99214 ==

== ENCOUNTER 2021-08-09 10:00 | Inpatient (IN) | payer BC, SELFPAY ==
[2021-08-09] VITALS (12 sets, daily range): BP systolic 94–145; BP diastolic 60–68; PULSE 82–112; RESP 20–25; TEMP 36.3–36.6; O2SAT 94–98; BMI 20.3
--- NOTE | 2021-08-09 10:02 | W.ED.SOB ---
HPI - SOB/Dyspnea General: Chief Complaint: Shortness of Breath/Dyspnea Stated Complaint: RESP DISTRESS, POSSIBLE SEPSIS Time Seen by Provider: 08/09/21 10:02 History of Present Illness: HPI Narrative: Ms. Kitchen is a 60-year-old lady with history of AAA, COPD, hypertension, hyperlipidemia, CAD with history of NV who presents to the emergency department due to generalized illness and respiratory distress. Symptom onset was approximately 3 days ago and initially the patient noticed headache which is mostly frontal 1 pounding in nature. She denies history of frequent headaches. She subsequently developed cough with shortness of breath and generalized malaise. She presented to outside clinic where she was found to be hypoxemic on room air though she did improve with supplemental oxygen. She endorses nasal congestion. Overall course of symptoms has been worsening. Intensity is moderate to severe. No other specific changes in health, exacerbating, or alleviating factors identified. Onset (ago): day(s) Timing: progressively worsening Severity: severe Exacerbating factors: exertion and coughing Review of Systems General: Reports: 10 or more systems reviewed and unremarkable except in HPI and below PFSH ED PFSH: Medical History (Updated 08/12/21 @ 00:01 by ) CAD (coronary artery disease) Coronary artery disease with surgical revascularization recommended. Activity will be limited while we attempt to maximize her pulmonary status prior to rescheduling for surgery Chronic obstructive pulmonary disease with bronchospasm Currently under oversight and management of Dr. Maurice from our pulmonary medicine service. She will follow-up with him in 2 weeks after discharge for continued optimization of her pulmonary status prior to attempt at rescheduling for CABG Cigarette nicotine dependence COPD (chronic obstructive pulmonary disease) HTN (hypertension) Hypercholesteremia Panic disorder [episodic paroxysmal anxiety] Peripheral Vascular Disease Psychiatric care UTI (urinary tract infection) Surgical History S/P dilatation and curettage S/P hysterectomy S/P right heart catheterization S/P tubal ligation Family History Father Stroke Other Cancer Clotting disorder Social History Smoking and tobacco status: current every day smoker (decreasing to 5 per day) cigarettes Years cigarettes smoked: 40 [ Other cigarette details: Hx of 1.5 PPD x 40 Years] Quit status (tobacco): considering quitting Second hand smoke exposure: Yes Alcohol intake: current Lives independently: Yes Household members: spouse Marital status: Current occupational status: disabled Pets and animals: Yes History of recent travel: No Current gender identity: Female Physical Exam Const: COMMON NORMALS: alert GENERAL APPEARANCE: cooperative, well developed and ill appearing HENMT: COMMON NORMALS: normocephalic and atraumatic HEAD & SCALP: normocephalic and atraumatic Eye: COMMON NORMALS: conjunctivae normal CONJUNCTIVA: Yes conjunctivae normal SCLERA: sclerae normal Neck/C-Spine: COMMON NORMALS: supple GENERAL: Yes trachea midline Resp: EFFORT & INSPECTION: Yes tachypneic AUSCULTATION: rhonchi, wheezes and diminished lung sounds Cardio: COMMON NORMALS: regular rhythm RATE: tachycardic RHYTHM: regular rhythm GI: COMMON NORMALS: Soft to palpation PALPATION: Yes Soft to palpation and No Tenderness to palpation present (GI) PERCUSSION: normal to percussion Extremity: GENERAL: Yes normal exam except as noted and No edema Neuro: COMMON NORMALS: moves all extremities SENSORIUM/ORIENTATION: Yes alert and No Orientation impaired Psych: COMMON NORMALS: mental status grossly normal and Normal thought process present THOUGHT PROCESS: Normal thought process present Course ED course: - Patient was seen and evaluated by me at bedside - Patient placed on cardiac monitors, IV access obtained - Initial evaluation notable for exam as above. Respiratory distress with new oxygen requirement and abnormal lung sounds with decreased lung aeration. - Labs and xrays personally interpreted by me. EKGs reviewed by me showing sinus rhythm with tachycardia and no STEMI. -RT treatment as well as analgesia and COPD exacerbation treatment ordered. - Labs notable for mild leukocytosis, normal hemoglobin. Metabolic panel with mild hypercapnia and acidemia with decreased PO2 despite supplemental oxygen. Metabolic panel with evidence of intravascular dehydration. Delta troponin negative. BNP is mildly elevated. -Given ABG findings as well as clinical context of fairly significant accessory muscle use and tachypnea BiPAP ordered. This had clinical improvement. - Imaging notable for emphysema without lobar consolidation or pneumothorax. CT head negative for acute intracranial pathology. - Upon serial reexamination after treatment the patient was improved with repeat RT treatments ordered - Based on patient history, evaluation, and testing as interpreted the most likely cause of the patient's condition is COPD exacerbation with acute hypercapnic and hypoxic respiratory failure. - The results of ED evaluation were discussed with the patient including plan for admission due to requirement for level of care not available if discharged to prevent significant worsening/deterioration. - Admitting service was contacted and Dr Gomez with the hospitalist service agreed to admit the patient - Patient was admitted without further deterioration or significant events. Note: Click bubbles or prepopulated burch in note writing are used for assistance with data collection and billing and are inherently more limited than narrative and other text portions of this note. Please use narrative for additional clinical history and defer to narrative/free test for any case of contradictory information. If information appears in only free text or click bubble it should be considered present or absent as reported. Please contact note contract writer for clarifications of clinical information or contradictory information. MDM is a brief summary, contradictory or erroneous seeming information should be clarified and full note should be reviewed. Vital Signs: Vital signs: Vital Signs Temperature 98.1 F 08/11/21 11:50 Pulse Rate 74 08/11/21 11:50 Respiratory Rate 16 08/11/21 11:50 Blood Pressure 102/74 08/11/21 11:50 Pulse Oximetry 95 08/11/21 11:50 MDM - SOB/Dyspnea Medical Decision Making 60-year-old lady with history of COPD presenting with worsening respiratory status. Patient has acute respiratory failure with hypoxemia and hypercapnia requiring BiPAP. Admitted for further management. Medical Records I reviewed the patient's medical records. Lab Data I reviewed the patient's lab results. : 08/10/21 05:09 08/10/21 06:16 Labs/Radiology: Radiology Impressions Chest X-Ray 08/09/21 10:09 IMPRESSION: Moderate chronic emphysema. No pneumonia. Head CT 08/09/21 10:09 IMPRESSION: 1. No acute intracranial hemorrhage or edema. 2. Mild small vessel ischemic disease. Laboratory Results WBC 7.2 10^3/uL (4.0-10.0) 08/10/21 05:09 RBC 4.63 10^6/uL (4.1-5.3) 08/10/21 05:09 Hgb 14.1 g/dL (11.5-15.3) 08/10/21 05:09 Hct 42.9 % (37.0-47.0) 08/10/21 05:09 MCV 92.7 fl (81-99) 08/10/21 05:09 MCH 30.5 pg (28.0-34.0) 08/10/21 05:09 MCHC 32.9 g/dL (30.0-36.0) 08/10/21 05:09 RDW 14.6 % (12.1-15.1) 08/10/21 05:09 Plt Count 192 10^3/cmm (130-400) 08/10/21 05:09 MPV 10.1 fL (7.4-10.4) 08/10/21 05:09 Neut % (Auto) 74.3 % 08/10/21 05:09 Lymph % (Auto) 22.7 % 08/10/21 05:09 [place] % (Auto) 1.9 % 08/10/21 05:09 Eos % (Auto) 0.4 % 08/10/21 05:09 Baso % (Auto) 0.3 % 08/10/21 05:09 Neut # (Auto) 5.34 10^3/uL (1.8-7.7) 08/10/21 05:09 Lymph # (Auto) 1.6 10^3/uL (0.8-4.8) 08/10/21 05:09 [place] # (Auto) 0.1 10^3/uL (0.2-0.9) L 08/10/21 05:09 Eos # (Auto) 0.0 10^3/uL (0.0-0.8) 08/10/21 05:09 Baso # (Auto) 0.0 10^3/uL (0.0-0.1) 08/10/21 05:09 Nucleated RBC % (auto) 0 % 08/10/21 05:09 Nucleated RBCs # 0.0 /100WBC 08/10/21 05:09 Specimen Type Arterial 08/09/21 10:33 Sample Site Radial, left 08/09/21 10:33 ABG pH 7.31 (7.35-7.45) L 08/09/21 10:33 ABG pCO2 50.2 mmHg (35-45) H 08/09/21 10:33 ABG pO2 77.8 mmHg (80.0-100.0) L 08/09/21 10:33 ABG HCO3 25.0 mmol/L (22-26) 08/09/21 10:33 ABG Base Excess -1.9 mmol/L (-2.0-2.0) 08/09/21 10:33 John Test Pos 08/09/21 10:33 Hematocrit 41.1 % (37-47) 08/09/21 10:33 O2 Delivery Device Nc 08/09/21 10:33 O2 Liters/Min 3.0 % 08/09/21 10:33 FiO2 32.0 % 08/09/21 10:33 Honing Job Setter ID Gd 08/09/21 10:33 Sodium 129 mmol/L (136-145) L 08/10/21 06:16 Potassium 3.7 mmol/L (3.5-5.1) 08/10/21 06:16 Chloride 94 mmol/L (98-107) L 08/10/21 06:16 Carbon Dioxide 24 mmol/L (22-29) 08/10/21 06:16 Anion Gap 14.7 (5-19) 08/10/21 06:16 BUN 15 mg/dL (6-20) 08/10/21 06:16 Creatinine 0.4 mg/dL (0.5-0.9) L 08/10/21 06:16 GFR Calculation 163.4 mL/min (90-130) H 08/10/21 06:16 Glucose 158 mg/dL (65-115) H 08/10/21 06:16 Calculated Osmolality 272 mOsm/kg (285-295) L 08/10/21 06:16 Calcium 9.2 mg/dL (8.5-10.5) 08/10/21 06:16 Phosphorus 2.8 mg/dL (2.5-4.5) 08/10/21 06:16 Magnesium 2.2 mg/dL (1.7-2.3) 08/10/21 06:16 Total Bilirubin 0.2 mg/dL (0.15-1.2) 08/09/21 11:11 AST 132 U/L (0-32) H 08/09/21 11:11 ALT 30 U/L (0-33) 08/09/21 11:11 Alkaline Phosphatase 69 IU/L (35-105) 08/09/21 11:11 Troponin T Baseline 12 ng/L (0-10) H 08/09/21 11:11 Troponin T 120 Minute 12.11 ng/L (0-10) H 08/09/21 13:16 Delta Troponin T 0.11 ABS# (0-10) 08/09/21 13:16 Troponin T Hi Sens 6Hr 9.58 ng/L (0-10) 08/09/21 17:18 Troponin T Hi Sens 6Hr Delta -2.42 ng/L (0-12) L 08/09/21 17:18 C-Reactive Protein 98.4 mg/L (0.0-4.9) H 08/09/21 11:11 NT-Pro-B Natriuret Pep 1004 pg/mL (0-125) H 08/09/21 11:11 Total Protein 7.0 g/dL (6.6-8.7) 08/09/21 11:11 Albumin 4.3 g/dL (3.5-5.2) 08/09/21 11:11 Globulin 2.7 g/dL (1.3-4.6) 08/09/21 11:11 Procalcitonin 0.19 ng/mL (0-0.5) 08/09/21 11:11 TSH 1.13 uIU/mL (0.27-4.20) 08/09/21 11:11 Coronavirus 229E (PCR) Not detected (NOT DETECT) 08/10/21 10:20 SARS-CoV-2 (PCR) Not detected (NOT DETECT) 08/10/21 10:20 Critical Care Time Critical Care Time: Critical Care Time: Yes Total Critical Care Time: 35 Attestation: Due to a high probability of clinically significant, possibly life threatening deterioration, the patient required my highest level of attention and preparedness to intervene emergently and I personally spent this critical care time directly and personally managing the patient. This critical care time included obtaining a history; examining the patient; pulse oximetry; ordering and review of laboratory and imaging studies; arranging urgent treatment with development of a management plan; evaluation of patient's response to treatment; frequent reassessment; and, discussions with other providers as applicable. It was exclusive of separately billable procedures. Primary system involved is respiratory Discharge Plan Discharge Patient Disposition: Placed in Observation Admit Provider: Pedro Gomez Clinical Impression: Acute exacerbation of chronic obstructive pulmonary disease, Acute respiratory failure with hypoxia and hypercapnia Discharge Diet: Cardiac Discharge Activity: Increase activity as tolerated Coding Level of Care Code ED Hospital Account Manager for Chg Fwd Exam Comprehensive
--- NOTE | 2021-08-09 10:09 | XR_ITS ---
WS: [id number] PORTABLE CHEST HISTORY: sob COMPARISON: 05/18/2019 Moderate pulmonary hyperinflation with changes of emphysema. No mass or nodule. No pneumonia. No pleu ral effusion or pneumothorax. Cardiac size: Normal. Mediastinum/Aorta: Normal mediastinum. No osseous abnormality seen. XR/XR chest 1V portable [id number] IMPRESSION: Moderate chronic emphysema. No pneumonia.
--- NOTE | 2021-08-09 10:09 | CT_ITS ---
WS: [id number] CT HEAD NONCONTRAST HISTORY: headache TECHNIQUE: Contiguous axial imaging performed through the brain in 2.5 mm imaging. Bone and soft tiss ue windows. Sagittal and coronal reformats reviewed. All CT scans at [facility] use at least one of these dose optimization techniques: automated exposure control; mA and/or kV adjustment per pa tient size (includes targeted exams where dose is matched to clinical indication); or iterative recon struction. DLP: 786.21 mGy.cm COMPARISON: None available. No acute intracranial hemorrhage, midline shift or mass effect. No significant atrophy. There is very mild small vessel ischemic disease. Prior lacunar infarct anter ior limb LEFT external capsule. Ventricles: Normal size with no hydrocephalus. Paranasal sinuses: Mucoperiosteal thickening is minimal in the ethmoid air cells. No air-fluid levels . Mastoid air cells: Well pneumatized. Calvarium and scalp: Skull is intact with no soft tissue edema or swelling. CT/CT head wo con* [id number] IMPRESSION: 1. No acute intracranial hemorrhage or edema. 2. Mild small vessel ischemic disease.
--- NOTE | 2021-08-09 10:10 | ECG_ITS ---
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 Measurements Intervals [place] Rate: 107 P: 87 NM: 134 QRS: 90 QRSD: 82 T: 78 QT: 326 QTc: 437 Interpretive Statements SINUS TACHYCARDIA WITH OCCASIONAL SUPRAVENTRICULAR PREMATURE COMPLEXES POSSIBLE RIGHT ATRIAL ENLARGEMENT [0.25mV P-WAVE] MODERATE ST DEPRESSION [0.05+ mV ST DEPRESSION] No previous ECG available for comparison Electronically Signed On 08-09-2021 23:57:47 CDT by Flor Luevano M.D. [id number]
[2021-08-09 10:46] LABS: Basophils % 0.2 %; Hematocrit 40.3 % (37.0-47.0); Hemoglobin 13.2 g/dL (11.5-15.3); Lymphocytes # 1.4 10^3/uL (0.8-4.8); Lymphocytes % 12.3 %; Mean Corpuscular HGB Conc 32.8 g/dL (30.0-36.0); Mean Corpuscular Hemoglobin 30.3 pg (28.0-34.0); Mean Corpuscular Volume 92.4 fl (81-99); Mean Platelet Volume 9.4 fL (7.4-10.4); Monocytes # 0.8 10^3/uL (0.2-0.9); Monocytes % 6.5 %; Neutrophils # 9.31 10^3/uL (1.8-7.7); Neutrophils % 80.5 %; Nucleated Red Blood Cells % 0 %; Platelet Count 237 10^3/cmm (130-400); Red Blood Count 4.36 10^6/uL (4.1-5.3); Red Cell Distribution Width 14.6 % (12.1-15.1); White Blood Count 11.6 10^3/uL (4.0-10.0)
[2021-08-09 10:49] LABS: ABG PCO2 50.2 mmHg (35-45); ABG PH Result 7.31 (7.35-7.45); Arterial Blood Gas Hematocrit 41.1 % (37-47); Base Excess ABG -1.9 mmol/L (-2.0-2.0); Blood Gas Allen Test Pos; Blood Gas Operator Identificat GD; Blood Gas Sample Site Radial, left; Blood Gas Sample Type Arterial; Oxygen Device NC; PO2 ABG 77.8 mmHg (80.0-100.0)
[2021-08-09] MEDS: morphine 4 mg/mL SDV 1 mL IVP (11:36)
[2021-08-09 11:50] LABS: Troponin(5th) Baseline 12 ng/L (0-10)
[2021-08-09 12:07] LABS: NT Pro B Type Natriuretic Pept 1004 pg/mL (0-125); Procalcitonin 0.19 ng/mL (0-0.5); Thyroid Stimulating Hormone 1.13 uIU/mL (0.27-4.20)
--- NOTE | 2021-08-09 12:10 | ECG_ITS ---
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 Measurements Intervals [place] Rate: 106 P: 87 [place]: 135 QRS: 92 QRSD: 73 T: 90 QT: 324 QTc: 431 Interpretive Statements SINUS TACHYCARDIA WITH OCCASIONAL SUPRAVENTRICULAR PREMATURE COMPLEXES POSSIBLE RIGHT ATRIAL ENLARGEMENT [0.25mV P-WAVE] BORDERLINE RIGHT AXIS DEVIATION [QRS AXIS > 90] ABNORMAL RHYTHM ECG Compared to ECG 08/09/2021 10:35:05 ST (T wave) deviation no longer present Electronically Signed On 08-10-2021 0:20:09 CDT by Flor Luevano M.D. [id number]
[2021-08-09 12:18] LABS: Alanine Aminotransferase 30 U/L (0-33); Albumin Level 4.3 g/dL (3.5-5.2); Alkaline Phosphatase 69 IU/L (35-105); Anion Gap 16.1 (5-19); Aspartate Amino Transferase 132 U/L (0-32); Blood Urea Nitrogen 11 mg/dL (6-20); C Reactive Protein 98.4 mg/L (0.0-4.9); Calcium 8.5 mg/dL (8.5-10.5); Carbon Dioxide 25 mmol/L (22-29); Chloride 93 mmol/L (98-107); Creatinine Clr Calc Pharmacy 111.7688; Globulin 2.7 g/dL (1.3-4.6); Glomerular Filtration Rate 126.3 mL/min (90-130); Glucose 112 mg/dL (65-115); Osmolality Calculated 270 mOsm/kg (285-295); Potassium 4.1 mmol/L (3.5-5.1); Sodium 130 mmol/L (136-145); Total Bilirubin 0.2 mg/dL (0.15-1.2)
[2021-08-09 13:51] LABS: Troponin 5 2HR 12.11 ng/L (0-10)
[2021-08-09 13:52] LABS: Troponin 5 2HR Delta 0.11 ABS# (0-10)
--- NOTE | 2021-08-09 14:17 | P.HP_ITS ---
Providers/Chief Complaint Admitting Physician: Pedro Gomez Primary Care Provider: VELMA Minor Chief Complaint: RESP DISTRESS, POSSIBLE SEPSIS History of Present Illness Neeru Kitchen is a 60 year old female with a past medical history significant for coronary artery disease, COPD not on home oxygen, hypertension, panic disorder, peripheral vascular disease, and tobacco use disorder who presents to the emergency department with shortness of breath x3 days. Patient reports she was in her usual state of health until 3 days ago when she developed progressive shortness of breath associated with productive cough, fevers, chills, and generalized malaise. She has a known history of COPD and continues to smoke. Denies prior need for admission for COPD exacerbation. Denies chest pain, headache, or abdominal pains. In the ED, patient is found to be in respiratory distress with acute mixed respiratory failure requiring BiPAP. She reports the BiPAP seems to be helping her breathing at the moment. Review of Systems Narrative: A complete review of systems was obtained and is negative except as stated in HPI. Medications/Allergies Home Medications Medication Instructions Recorded Confirmed Last Taken Type epinephrine 0.3 mg/0.3 mL 0.3 mg IM ONCE 04/07/19 08/09/21 Unknown History injection, auto-injector (EpiPen) nitroglycerin 0.4 mg sublingual 0.4 mg SUBLINGUAL Q5M PRN 04/07/19 08/09/21 Unknown History tablet (Nitrostat) herbal drugs 1 tab PO DAILY 07/26/19 08/09/21 08/08/21 History fluticasone propionate 50 1 spray INTRANASAL DAILY PRN #15.8 12/29/19 08/09/21 08/08/21 Rx mcg/actuation nasal ml spray,suspension (Flonase Allergy Relief) tiotropium bromide 2.5 2 puff INHALATION DAILY #4 g 05/31/20 08/09/21 08/08/21 Rx mcg/actuation mist for inhalation (Spiriva Respimat) aspirin 81 mg tablet,delayed 81 mg PO DAILY #30 tab 06/27/20 08/09/21 08/08/21 Rx release (Adult Aspirin Regimen) albuterol sulfate 90 mcg/actuation 2 puff INHALATION Q6H PRN #8.5 g 08/08/20 08/09/21 Unknown Rx aerosol inhaler (Ventolin HFA) albuterol sulfate See Rx Instructions .ROUTE 12/29/20 08/09/21 Unknown Rx .COMPLEX #75 ml budesonide-formoterol HFA 160 See Rx Instructions .ROUTE 05/30/21 08/09/21 08/08/21 Rx mcg-4.5 mcg/actuation aerosol .COMPLEX #10.2 g inhaler (Symbicort) atorvastatin 80 mg tablet 80 mg PO DAILY #30 tab 06/20/21 08/09/21 08/08/21 Rx clopidogrel 75 mg tablet 75 mg PO DAILY #30 tab 06/20/21 08/09/21 08/08/21 Rx diazepam 5 mg tablet See Rx Instructions PO .COMPLEX 06/21/21 08/09/21 08/08/21 Rx #35 tab venlafaxine 75 mg tablet 75 mg PO DAILY #30 tab 06/21/21 08/09/21 08/08/21 Rx diazepam 5 mg tablet 5 mg PO DAILY PRN #20 tab 06/29/21 08/09/21 08/08/21 Rx budesonide 160 mcg-glycopyr 9 2 inh INHALATION BID #10.7 g 07/11/21 08/09/21 08/08/21 Rx mcg-formot 4.8 mcg/actuation HFA inhaler (Breztri Aerosphere) atenolol 25 mg tablet 25 mg PO DAILY 08/09/21 08/09/21 08/08/21 History Allergies Allergy/AdvReac Type Severity Reaction Status Date / Time bee venom protein (honey bee) Allergy Intermediate pass out Verified 08/09/21 11:45 swell up Sulfa (Sulfonamide AdvReac Severe Severe Verified 08/09/21 11:45 Antibiotics) pains aspirin AdvReac Mild Ulcer Verified 08/09/21 11:45 ibuprofen [From Motrin] AdvReac Mild Ulcer Verified 08/09/21 11:45 tramadol AdvReac Mild Nauseous Verified 08/09/21 11:45 PFSH Acute PFSH: Medical History (Updated 08/09/21 @ 15:19 by Pedro Gomez MD) CAD (coronary artery disease) Coronary artery disease with surgical revascularization recommended. Activity will be limited while we attempt to maximize her pulmonary status prior to rescheduling for surgery Chronic obstructive pulmonary disease with bronchospasm Currently under oversight and management of Dr. Maurice from our pulmonary medicine service. She will follow-up with him in 2 weeks after discharge for continued optimization of her pulmonary status prior to attempt at rescheduling for CABG Cigarette nicotine dependence COPD (chronic obstructive pulmonary disease) HTN (hypertension) Hypercholesteremia Panic disorder [episodic paroxysmal anxiety] Peripheral Vascular Disease Psychiatric care UTI (urinary tract infection) Surgical History S/P dilatation and curettage S/P hysterectomy S/P right heart catheterization S/P tubal ligation Family History Father Stroke Other Cancer Clotting disorder Social History Smoking and tobacco status: current every day smoker (decreasing to 5 per day) cigarettes Years cigarettes smoked: 40 [ Other cigarette details: Hx of 1.5 PPD x 40 Years] Quit status (tobacco): considering quitting Second hand smoke exposure: Yes Alcohol intake: current Lives independently: Yes Household members: spouse Marital status: Current occupational status: disabled Pets and animals: Yes History of recent travel: No Current gender identity: Female Vitals/I&O/Wt Last Vital Signs Pulse 108 H 08/09/21 13:27 Resp 20 H 08/09/21 10:30 BP 108/68 08/09/21 10:06 Pulse Ox 96 08/09/21 13:27 Weight last 48 hrs Weight 57.153 kg Physical Exam Narrative: General: Patient is awake. On BiPAP. Head: Normocephalic. Atraumatic. EOM intact. Neck: No JVD. Cardiovascular: Regular rhythm. No gallops. Tachycardic. No murmurs. No peripheral edema. Lungs: Very tight air movement. Tachypneic. Using accessory muscles to breathe. No wheezings or crackles noted although air movement was very poor. On BiPAP. Skin: No jaundice. No rashes. Abdomen: Normal bowel sounds, abdomen soft and nontender. Genito Urinary: Genital exam not performed since complaints not related. Rectal: Rectal exam not performed since no symptoms indicated blood loss. Extremeties: No cyanosis or clubbing. Musculoskeletal: 5/5 strength, normal range of motion, no swollen or erythematous joints. Neurological: Moves all 4 extremities. No myoclonus. Data : 08/09/21 10:32 05/12/22 11:11 Micro: Microbiology 08/09/21 11:16 Blood Culture - Preliminary Blood SPECIMEN COLLECTED 08/09/21 11:11 Blood Culture - Preliminary Blood SPECIMEN COLLECTED CXR: My impression: No focal consolidation Radiologist's impression: PORTABLE CHEST HISTORY: sob COMPARISON: 05/18/2019 Moderate pulmonary hyperinflation with changes of emphysema. No mass or nodule. No pneumonia. No pleural effusion or pneumothorax. Cardiac size: Normal. Mediastinum/Aorta: Normal mediastinum. No osseous abnormality seen. XR/XR chest 1V portable [id number] IMPRESSION: ? Moderate chronic emphysema. No pneumonia. ? Sinus tach: EKG computer-generated impression: Chest X-Ray 08/09/21 10:09 IMPRESSION: Moderate chronic emphysema. No pneumonia. Head CT 08/09/21 10:09 IMPRESSION: 1. No acute intracranial hemorrhage or edema. 2. Mild small vessel ischemic disease. A&P Assessment and plan (1) Acute exacerbation of chronic obstructive pulmonary disease: Start IV steroids with methylprednisolone 40 mg IV every 8 hours. Start nebulizing treatments with calm [place], formoterol, and albuterol. Continue BiPAP for increased work of breathing and mixed respiratory failure. Start doxycycline for anti-inflammatory effects. Checks x-ray personally reviewed negative for focal consolidation. Anticipate smoking cessation counseling when clinically appropriate. RT consultation. Status: Acute (2) Acute respiratory failure with hypoxia and hypercapnia: Secondary to above. ABG reviewed. We will continue with BiPAP. We will wean supplemental respiratory support as tolerated. Telemetry monitoring with continuous pulse oximetry. SPO2 goal no greater than 96% this is associated with worse outcomes and COPD. Status: Acute (3) Hyponatremia: Mild. Repeat labs in the a.m. Status: Acute (4) Cigarette nicotine dependence: She would benefit from smoking cessation. We will provide smoking cessation counseling prior to discharge. Status: Acute (5) Panic disorder [episodic paroxysmal anxiety]: Continue home diazepam. Status: Acute (6) Abdominal aortic aneurysm: No acute complaints of abdominal pain. Continue to monitor. Optimize heart rate and blood pressure as tolerated. Status: Acute (7) Peripheral Vascular Disease: Continue home statin. Continue home aspirin. Continue home Plavix. Would benefit from smoking cessation. Status: Acute (8) Hypercholesteremia: Continue statin. Status: Acute (9) CAD (coronary artery disease): Continue statin, aspirin, Plavix, and beta-george. Status: Acute Qualifiers: Coronary Disease-Associated Artery/Lesion type: [place] artery [place] vs. transplanted heart: [place] heart Associated angina: with unspecified form of angina Qualified Code(s): I25.119 - Atherosclerotic heart disease of [place] coronary artery with unspecified angina pectoris (10) HTN (hypertension): Continue atenolol Status: Acute Qualifiers: Hypertension type: essential hypertension Qualified Code(s): I10 - Essential (primary) hypertension (11) Myocardial injury: No complaints of chest pain. Most likely secondary to respiratory distress. Telemetry monitoring. Status: Acute Plan DVT prophylaxis: Lovenox Attestations Medical Necessity Statement*: Patient is in respiratory distress with mixed respiratory failure requiring noninvasive mechanical ventilation, current care plan does not expect patient to cross 2 midnights. 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 transplanted heart: [place] heart Associated angina: with unspecified form of angina HTN (hypertension) I10 Hypertension type: essential hypertension Myocardial injury I5A
--- NOTE | 2021-08-09 16:10 | ECG_ITS ---
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 Measurements Intervals [place] Rate: 93 P: 87 [place]: 133 QRS: 91 QRSD: 77 T: 85 QT: 350 QTc: 437 Interpretive Statements SINUS RHYTHM WITH OCCASIONAL SUPRAVENTRICULAR PREMATURE COMPLEXES BORDERLINE RIGHT AXIS DEVIATION [QRS AXIS > 90] Compared to ECG 08/09/2021 12:30:37 Sinus tachycardia no longer present Electronically Signed On 08-10-2021 0:21:02 CDT by Flor Luevano M.D. [id number]
[2021-08-09] MEDS: doxycycline 100 MG in sodium chloride 0.9% (plus) 100 ML IV (16:21)
[2021-08-09 18:49] LABS: Troponin 5 6HR 9.58 ng/L (0-10)
[2021-08-09 19:08] LABS: Troponin 5 6HR Delta -2.42 ng/L (0-12)
[2021-08-09] MEDS: budesonide 0.5 mg/2 mL Neb INHALATION (20:52)
[2021-08-09] MEDS: ipratropium-albuterol 3 mL Neb INHALATION (20:52)
[2021-08-09] MEDS: sennosides 8.6 mg Tablet 17.2 MG PO (21:04)
[2021-08-10] VITALS (17 sets, daily range): BP systolic 93–112; BP diastolic 61–67; PULSE 76–94; RESP 16–26; TEMP 36.2–36.9; O2SAT 64–97
[2021-08-10] MEDS: ipratropium-albuterol 3 mL Neb INHALATION ×7 (00:34→23:34)
[2021-08-10] MEDS: doxycycline 100 MG in sodium chloride 0.9% (plus) 100 ML IV ×2 (04:37→17:36)
[2021-08-10 05:47] LABS: Basophils % 0.3 %; Eosinophils % 0.4 %; Hematocrit 42.9 % (37.0-47.0); Hemoglobin 14.1 g/dL (11.5-15.3); Lymphocytes # 1.6 10^3/uL (0.8-4.8); Lymphocytes % 22.7 %; Mean Corpuscular HGB Conc 32.9 g/dL (30.0-36.0); Mean Corpuscular Hemoglobin 30.5 pg (28.0-34.0); Mean Corpuscular Volume 92.7 fl (81-99); Mean Platelet Volume 10.1 fL (7.4-10.4); Monocytes # 0.1 10^3/uL (0.2-0.9); Monocytes % 1.9 %; Neutrophils # 5.34 10^3/uL (1.8-7.7); Neutrophils % 74.3 %; Nucleated Red Blood Cells % 0 %; Platelet Count 192 10^3/cmm (130-400); Red Blood Count 4.63 10^6/uL (4.1-5.3); Red Cell Distribution Width 14.6 % (12.1-15.1); White Blood Count 7.2 10^3/uL (4.0-10.0)
[2021-08-10 06:04] LABS: Slide Review Slide Review Perform
[2021-08-10 07:06] LABS: Anion Gap 14.7 (5-19); Blood Urea Nitrogen 15 mg/dL (6-20); Calcium 9.2 mg/dL (8.5-10.5); Carbon Dioxide 24 mmol/L (22-29); Chloride 94 mmol/L (98-107); Glomerular Filtration Rate 163.4 mL/min (90-130); Glucose 158 mg/dL (65-115); Magnesium 2.2 mg/dL (1.7-2.3); Osmolality Calculated 272 mOsm/kg (285-295); Phosphorus 2.8 mg/dL (2.5-4.5); Potassium 3.7 mmol/L (3.5-5.1); Sodium 129 mmol/L (136-145)
[2021-08-10 07:10] LABS: Creatinine Clr Calc Pharmacy 150.6409
[2021-08-10] MEDS: budesonide 0.5 mg/2 mL Neb INHALATION ×2 (07:54→20:24)
[2021-08-10] MEDS: predniSONE 20 mg Tablet 40 MG PO (09:19)
[2021-08-10] MEDS: aspirin 81 mg EC Tablet PO (10:09)
[2021-08-10] MEDS: clopidogrel 75 mg Tablet PO (10:09)
[2021-08-10] MEDS: guaiFENesin 600 mg Tablet 1200 MG PO ×2 (10:09→17:36)
[2021-08-10] MEDS: atorvastatin 40 mg Tablet 80 MG PO (10:09)
[2021-08-10] MEDS: atenolol 50 mg Tablet 25 MG PO (10:10)
[2021-08-10] MEDS: diazePAM 5 mg Tablet 2.5 MG PO ×2 (10:10→17:36)
[2021-08-10] MEDS: venlafaxine 75 mg Tablet PO (10:11)
--- NOTE | 2021-08-10 13:13 | PM.PN ---
Subjective Subjective: Patient continues to endorse shortness of breath. She reports minimal exertion causes severe dyspnea. Continues to endorse productive cough. She complains of sinus congestion and rhinorrhea. Denies fevers, chills, chest pain, or abdominal pains. Reports prior home oxygen but states it was taken away for unclear reasons. Medications: Reviewed: Yes Vitals/I&O/Wt Last Vital Signs Temp 97.1 F L 08/10/21 12:31 Pulse 85 08/10/21 12:31 Resp 18 08/10/21 12:31 BP 109/67 08/10/21 12:31 Pulse Ox 97 08/10/21 12:00 08/09/21 08/10/21 08/10/21 22:59 06:59 14:59 Intake Total 100 / 100 580 / 680 360 / 360 Balance 100 / 100 580 / 680 360 / 360 Weight last 48 hrs Weight 68.583 kg Weight 57.153 kg Physical Exam Narrative: General: Patient is awake and alert. Anxious at times. Head: Normocephalic. Atraumatic. EOM intact. Neck: No JVD. Cardiovascular: RRR. No gallops. No murmurs. No peripheral edema. Lungs: Poor air movement although mildly improved from yesterday's exam and very faint end expiratory wheezing. Tachypneic when talking. Some mild accessory muscle use when talking. No crackles, no rales, or rhonchi. Skin: No jaundice. No rashes. Abdomen: Normal bowel sounds, abdomen soft and nontender. Genito Urinary: Genital exam not performed since complaints not related. Rectal: Rectal exam not performed since no symptoms indicated blood loss. Extremeties: No cyanosis or clubbing. Musculoskeletal: No swollen or erythematous joints. Neurological: Moves all 4 extremities. No myoclonus. Data : 08/10/21 05:09 08/10/21 06:16 Micro: Microbiology 08/09/21 11:16 Blood Culture - Preliminary Blood NEGATIVE TO DATE 08/09/21 11:11 Blood Culture - Preliminary Blood NEGATIVE TO DATE A&P Assessment and plan (1) Acute exacerbation of chronic obstructive pulmonary disease: Patient still with very poor air movement on exam, not responding as quickly to treatment as expected. She remains very symptomatic. We will continue with scheduled budesonide nebs, DuoNebs, and steroids. Hold Spiriva as she is getting nebulized ipratropium. We will attempt to transition to p.o. steroids today as tolerated. Continue doxycycline for anti-inflammatory effects. She has a history of hypoxic respiratory failure previously on home oxygen. Unclear as to why she no longer has home oxygen. We will further evaluate with a home oxygen study. Status: Acute (2) Acute respiratory failure with hypoxia and hypercapnia: She required the BiPAP overnight. She is on nasal cannula this morning. We will continue treating her underlying COPD exacerbation. Home oxygen evaluation is pending. Wean supplemental support as tolerated. Avoid SPO2 over 96% as this is associated with worse outcomes and COPD patients. Status: Acute (3) Acute rhinosinusitis: Patient complains of continued nasal congestion and rhinorrhea consistent with acute rhinosinusitis. This is likely the trigger for her acute COPD exacerbation. We will start Mucinex for mucolytic effects. Continue Flonase. Status: Acute (4) Cigarette nicotine dependence: She would benefit from smoking cessation. She is rather anxious on this morning's exam, will provide smoking cessation counseling whenever her anxiety and respiratory status improves. Status: Acute (5) Hyponatremia: Serum sodium is 129 today. She also has hypochloremia and elevated BNP. Her primary pathology is COPD however it is possible she has an element of mild fluid overload, will provide one-time gentle diuresis with Lasix. Status: Acute (6) Myocardial injury: Repeat troponin at 6 hours was within normal limits consistent with resolution of acute myocardial injury secondary to respiratory distress. We will continue with telemetry monitoring. Status: Acute (7) Panic disorder [episodic paroxysmal anxiety]: She is rather anxious on today's exam. Her anxiety may get in the way of her breathing. We will resume her home diazepam. Status: Acute (8) Abdominal aortic aneurysm: Denies any abdominal pain. Continue outpatient follow-up. Status: Acute (9) Peripheral Vascular Disease: Continue aspirin and Plavix. Continue statin. Anticipate smoking cessation. Status: Acute (10) Hypercholesteremia: Continue aspirin and statin. Status: Acute (11) CAD (coronary artery disease): Continue aspirin, statin, Plavix, and beta-george. Status: Acute Qualifiers: Coronary Disease-Associated Artery/Lesion type: [place] artery [place] vs. transplanted heart: [place] heart Associated angina: with unspecified form of angina Qualified Code(s): I25.119 - Atherosclerotic heart disease of [place] coronary artery with unspecified angina pectoris (12) HTN (hypertension): Continue atenolol. Status: Acute Qualifiers: Hypertension type: essential hypertension Qualified Code(s): I10 - Essential (primary) hypertension Plan DVT prophylaxis: Lovenox Attestations Medical Necessity Statement*: Patient requires ongoing hospitalization due to respiratory failure requiring supplemental oxygen support and noninvasive mechanical ventilation as needed. 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 transplanted heart: [place] heart Associated angina: with unspecified form of angina HTN (hypertension) I10 Hypertension type: essential hypertension Acute rhinosinusitis J01.90
--- NOTE | 2021-08-10 13:16 | PC.NURSE ---
Pt reports having medications in her bag at bedside. Home medications reveal valium which this nurse is concerned being in her bag but pt refusing to let me put away her medications in our pyxis. Ghada, building repair maintenance supervisor, notified and at bedside later with security. Pt continues to refuse to let us put medication away. Pharmacy and Dr. Gomez notified and states this is fine as long as patient doesn't take it.
[2021-08-10] MEDS: FUROsemide 10 mg/mL SDV 2mL 20 MG IVP (14:21)
[2021-08-10 14:23] LABS: Adenovirus Not Detected (NOT DETECT); Chlamydia Pneumoniae Not Detected (NOT DETECT); Coronavirus 229E,HKU1,NL63,OC4 Not Detected (NOT DETECT); Human Metapneumovirus Not Detected (NOT DETECT); Human Rhinovirus/Enterovirus Not Detected (NOT DETECT); Influenza A Not Detected (NOT DETECT); Influenza A H1 Not Detected (NOT DETECT); Influenza A H1-2009 Not Detected (NOT DETECT); Influenza A H3 Not Detected (NOT DETECT); Influenza B Not Detected (NOT DETECT); Mycoplasma Pneumoniae Not Detected (NOT DETECT); Parainfluenza Virus Type 1 Not Detected (NOT DETECT); Parainfluenza Virus Type 2 Not Detected (NOT DETECT); Parainfluenza Virus Type 3 Detected (NOT DETECT); Parainfluenza Virus Type 4 Not Detected (NOT DETECT); Respiratory Syncytial Virus A Not Detected (NOT DETECT); Respiratory Syncytial Virus B Not Detected (NOT DETECT); SARS-COV-2 Not Detected (NOT DETECT)
[2021-08-10] MEDS: acetaminophen 325 mg Tablet 650 MG PO (14:23)
[2021-08-10 14:31] LABS: Parainfluenza Virus Type 1 Not Detected (NOT DETECT); Parainfluenza Virus Type 2 Not Detected (NOT DETECT); Parainfluenza Virus Type 3 Detected (NOT DETECT); Parainfluenza Virus Type 4 Not Detected (NOT DETECT); Results from Genmark
--- NOTE | 2021-08-10 16:45 | PC.NURSE ---
Patient has home medications including Valium at bedside. It was offered by bedside nurse as well as this nurse to lock the medications up for the patient, but she denied. notified and okayed medications to stay at bedside as long as patient was not taking them. Explained to patient in detail that she needed to ask if she wanted her PRN medications as it was ordered here and the nurse would administer it. Patient stated understanding.
[2021-08-11] VITALS (10 sets, daily range): BP systolic 94–120; BP diastolic 61–74; PULSE 73–94; RESP 16–20; TEMP 36.7–36.9; O2SAT 94–97
[2021-08-11] MEDS: ipratropium-albuterol 3 mL Neb INHALATION ×3 (04:35→12:00)
[2021-08-11] MEDS: doxycycline 100 MG in sodium chloride 0.9% (plus) 100 ML IV (05:58)
[2021-08-11] MEDS: budesonide 0.5 mg/2 mL Neb INHALATION (07:39)
[2021-08-11] MEDS: cetirizine 10 mg Tablet PO (09:14)
[2021-08-11] MEDS: atorvastatin 40 mg Tablet 80 MG PO (09:14)
[2021-08-11] MEDS: venlafaxine 75 mg Tablet PO (09:14)
[2021-08-11] MEDS: clopidogrel 75 mg Tablet PO (09:15)
[2021-08-11] MEDS: aspirin 81 mg EC Tablet PO (09:15)
[2021-08-11] MEDS: guaiFENesin 600 mg Tablet 1200 MG PO (09:15)
[2021-08-11] MEDS: predniSONE 20 mg Tablet 40 MG PO (09:15)
[2021-08-11] MEDS: diazePAM 5 mg Tablet 2.5 MG PO (09:15)
[2021-08-11] MEDS: ketorolac 30 mg/mL INJ 15 MG IVP (09:16)
--- NOTE | 2021-08-11 11:03 | PM.DCS ---
Discharge Providers Date of Admission: 08/10/21 13:50 Date of Discharge: August 11, 2021 Attending Provider at Admission: Pedro Gomez MD Attending Provider at Discharge: Pedro Gomez MD Primary Care Provider: VELMA Minor Diagnoses at Discharge Discharge Diagnosis (1) Acute exacerbation of chronic obstructive pulmonary disease: Status: Acute (2) Acute respiratory failure with hypoxia and hypercapnia: Status: Acute (3) Acute rhinosinusitis: Status: Acute (4) Cigarette nicotine dependence: Status: Acute (5) Hyponatremia: Status: Acute (6) Myocardial injury: Status: Acute (7) Panic disorder [episodic paroxysmal anxiety]: Status: Acute (8) Abdominal aortic aneurysm: Status: Acute Permanent problem details: ifarenal AAA measuring 4.5cm x 4cm on ct abd/pelv from [facility] 05/17/21 (9) Peripheral Vascular Disease: Status: Acute (10) Hypercholesteremia: Status: Acute (11) CAD (coronary artery disease): Status: Acute Qualifiers: Coronary Disease-Associated Artery/Lesion type: [place] artery [place] vs. transplanted heart: [place] heart Associated angina: with unspecified form of angina Qualified Code(s): I25.119 - Atherosclerotic heart disease of [place] coronary artery with unspecified angina pectoris Permanent problem details: Coronary artery disease with surgical revascularization recommended. Activity will be limited while we attempt to maximize her pulmonary status prior to rescheduling for surgery (12) HTN (hypertension): Status: Acute Qualifiers: Hypertension type: essential hypertension Qualified Code(s): I10 - Essential (primary) hypertension Reason for Visit Reason for Visit: RESP DISTRESS, POSSIBLE SEPSIS Hospital Course Hospital Course Neeru Kitchen is a 60 year old female with a past medical history significant for coronary artery disease, COPD not on home oxygen, hypertension, panic disorder, peripheral vascular disease, and tobacco use disorder who presents to the emergency department with shortness of breath x3 days, found to have acute exacerbation of COPD with acute respiratory failure with hypoxia and hypercapnia requiring non-invasive mechanical ventilation secondary to parainfluenza 3 infection. Patient treated with BiPAP therapy, IV steroids transitioned to PO prednisone, IV transitioned to PO antibiotics, and nebulized breathing treatments. She completed home oxygen evaluation which showed need for continued oxygen therapy at home which was set up prior to discharge. Patient also found to have acute rhinosinusitis likely secondary to same virus. She was treated with Mucinex and Zyrtec. Patient is an active smoker. Smoking cessation was discussed on day of discharge. She reports that she smokes about half a pack of cigarettes per day. She reports that she thinks about quitting all the time. She states that she is quit numerous times before. We discussed those times. Most of those times were associated with acute hospitalizations where she did not smoke. She says after each hospitalization she goes home and tries not to smoke. She reports she does not last very long usually just a day or so until she starts smoking again. We discussed that she has not had any nicotine replacement or tobacco since she has been inpatient and now would be a good time to try again. We discussed harmful effects of smoking on her health especially given her COPD. Advised her to quit smoking. Discussed nicotine replacement options. She states that she is scared of the patch as she has heard it can kill people. Further education provided. She ultimately declined the patch. Smoking cessation counseling was provided for greater than 10 minutes. Patient discharged to home in stable condition. She is to follow-up with her primary care provider in 4 to 7 days. Physical Exam Narrative: General: Patient is awake and alert. No apparent distress. Frail-appearing. Head: Normocephalic. Atraumatic. EOM intact. Neck: No JVD. Cardiovascular: RRR. No gallops. No murmurs. Trace pedal edema. Lungs: End expiratory wheezing bilateral lung burch. No accessory muscle use. No crackles. On nasal cannula support. Skin: No jaundice. No rashes. Abdomen: Normal bowel sounds, abdomen soft and nontender. Extremeties: No cyanosis or clubbing. Musculoskeletal: No swollen or erythematous joints. Neurological: Moves all 4 extremities. No myoclonus. Discharge Data Studies Completed and Pending Completed Studies During Hospitalization Category Date Time Status CT head wo con* [id number] Urgent Cat Scan 08/09/21 10:09 Completed XR chest 1V portable [id number] Urgent Exams 08/09/21 10:09 Completed Pending at discharge Category Date Time Status Blood Culture Stat Lab 08/09/21 11:16 Results Radiology Impressions Chest X-Ray 08/09/21 10:09 IMPRESSION: Moderate chronic emphysema. No pneumonia. Head CT 08/09/21 10:09 IMPRESSION: 1. No acute intracranial hemorrhage or edema. 2. Mild small vessel ischemic disease. Laboratory Results WBC 7.2 10^3/uL (4.0-10.0) 08/10/21 05:09 RBC 4.63 10^6/uL (4.1-5.3) 08/10/21 05:09 Hgb 14.1 g/dL (11.5-15.3) 08/10/21 05:09 Hct 42.9 % (37.0-47.0) 08/10/21 05:09 MCV 92.7 fl (81-99) 08/10/21 05:09 MCH 30.5 pg (28.0-34.0) 08/10/21 05:09 MCHC 32.9 g/dL (30.0-36.0) 08/10/21 05:09 RDW 14.6 % (12.1-15.1) 08/10/21 05:09 Plt Count 192 10^3/cmm (130-400) 08/10/21 05:09 MPV 10.1 fL (7.4-10.4) 08/10/21 05:09 Neut % (Auto) 74.3 % 08/10/21 05:09 Lymph % (Auto) 22.7 % 08/10/21 05:09 [place] % (Auto) 1.9 % 08/10/21 05:09 Eos % (Auto) 0.4 % 08/10/21 05:09 Baso % (Auto) 0.3 % 08/10/21 05:09 Neut # (Auto) 5.34 10^3/uL (1.8-7.7) 08/10/21 05:09 Lymph # (Auto) 1.6 10^3/uL (0.8-4.8) 08/10/21 05:09 [place] # (Auto) 0.1 10^3/uL (0.2-0.9) L 08/10/21 05:09 Eos # (Auto) 0.0 10^3/uL (0.0-0.8) 08/10/21 05:09 Baso # (Auto) 0.0 10^3/uL (0.0-0.1) 08/10/21 05:09 Nucleated RBC % (auto) 0 % 08/10/21 05:09 Nucleated RBCs # 0.0 /100WBC 08/10/21 05:09 Specimen Type Arterial 08/09/21 10:33 Sample Site Radial, left 08/09/21 10:33 ABG pH 7.31 (7.35-7.45) L 08/09/21 10:33 ABG pCO2 50.2 mmHg (35-45) H 08/09/21 10:33 ABG pO2 77.8 mmHg (80.0-100.0) L 08/09/21 10:33 ABG HCO3 25.0 mmol/L (22-26) 08/09/21 10:33 ABG Base Excess -1.9 mmol/L (-2.0-2.0) 08/09/21 10:33 John Test Pos 08/09/21 10:33 Hematocrit 41.1 % (37-47) 08/09/21 10:33 O2 Delivery Device Nc 08/09/21 10:33 O2 Liters/Min 3.0 % 08/09/21 10:33 FiO2 32.0 % 08/09/21 10:33 [employer] ID Gd 08/09/21 10:33 Sodium 129 mmol/L (136-145) L 08/10/21 06:16 Potassium 3.7 mmol/L (3.5-5.1) 08/10/21 06:16 Chloride 94 mmol/L (98-107) L 08/10/21 06:16 Carbon Dioxide 24 mmol/L (22-29) 08/10/21 06:16 Anion Gap 14.7 (5-19) 08/10/21 06:16 BUN 15 mg/dL (6-20) 08/10/21 06:16 Creatinine 0.4 mg/dL (0.5-0.9) L 08/10/21 06:16 GFR Calculation 163.4 mL/min (90-130) H 08/10/21 06:16 Glucose 158 mg/dL (65-115) H 08/10/21 06:16 Calculated Osmolality 272 mOsm/kg (285-295) L 08/10/21 06:16 Calcium 9.2 mg/dL (8.5-10.5) 08/10/21 06:16 Phosphorus 2.8 mg/dL (2.5-4.5) 08/10/21 06:16 Magnesium 2.2 mg/dL (1.7-2.3) 08/10/21 06:16 Total Bilirubin 0.2 mg/dL (0.15-1.2) 08/09/21 11:11 AST 132 U/L (0-32) H 08/09/21 11:11 ALT 30 U/L (0-33) 08/09/21 11:11 Alkaline Phosphatase 69 IU/L (35-105) 08/09/21 11:11 Troponin T Baseline 12 ng/L (0-10) H 08/09/21 11:11 Troponin T 120 Minute 12.11 ng/L (0-10) H 08/09/21 13:16 Delta Troponin T 0.11 ABS# (0-10) 08/09/21 13:16 Troponin T Hi Sens 6Hr 9.58 ng/L (0-10) 08/09/21 17:18 Troponin T Hi Sens 6Hr Delta -2.42 ng/L (0-12) L 08/09/21 17:18 C-Reactive Protein 98.4 mg/L (0.0-4.9) H 08/09/21 11:11 NT-Pro-B Natriuret Pep 1004 pg/mL (0-125) H 08/09/21 11:11 Total Protein 7.0 g/dL (6.6-8.7) 08/09/21 11:11 Albumin 4.3 g/dL (3.5-5.2) 08/09/21 11:11 Globulin 2.7 g/dL (1.3-4.6) 08/09/21 11:11 Procalcitonin 0.19 ng/mL (0-0.5) 08/09/21 11:11 TSH 1.13 uIU/mL (0.27-4.20) 08/09/21 11:11 Coronavirus 229E (PCR) Not detected (NOT DETECT) 08/10/21 10:20 Parainfluenza 1 (PCR) Not detected (NOT DETECT) 08/10/21 14:28 Parainfluenza 2 (PCR) Not detected (NOT DETECT) 08/10/21 14:28 Parainfluenza 3 (PCR) Detected (NOT DETECT) A 08/10/21 14:28 Parainfluenza 4 (PCR) Not detected (NOT DETECT) 08/10/21 14:28 SARS-CoV-2 (PCR) Not detected (NOT DETECT) 08/10/21 10:20 Procedures Performed None Vitals Last Vital Signs Temp 98.5 F 08/11/21 07:19 Pulse 88 08/11/21 07:40 Resp 17 08/11/21 07:20 BP 94/61 08/11/21 07:19 Pulse Ox 97 08/11/21 07:20 Discharge Plan Discharge Patient Disposition: Home Condition: Stable Prescriptions: New cetirizine 10 mg Tablet 10 mg PO DAILY 30 Days Qty: 30 0RF prednisone 20 mg Tablet 40 mg PO DAILY 7 Days Qty: 14 0RF Mucinex 600 mg Tablet Extended Release 12hr 1,200 mg PO BID 7 Days Qty: 28 0RF doxycycline monohydrate 100 mg capsule 100 mg PO BID 3 Days Qty: 6 0RF Continued fluticasone propionate [Flonase Allergy Relief] 50 mcg/actuation spray,suspension 1 spray INTRANASAL DAILY PRN (Reason: allergy symptoms) Qty: 15.8 2RF diazepam 5 mg tablet 5 mg PO DAILY PRN (Reason: anxiety) Qty: 20 0RF epinephrine [EpiPen] 0.3 mg/0.3 mL auto-injector 0.3 mg IM ONCE 0RF nitroglycerin [Nitrostat] 0.4 mg tablet, sublingual 0.4 mg SUBLINGUAL Q5M PRN (Reason: Chest Pain) 0RF herbal drugs Tablet 1 tab PO DAILY 0RF Spiriva Respimat 2.5 mcg/actuation mist 2 puff inhalation DAILY Qty: 4 3RF albuterol sulfate [Ventolin HFA] 90 mcg/actuation HFA aerosol inhaler 2 puff inhalation Q6H PRN (Reason: shortness of breath or wheezing) Qty: 8.5 3RF albuterol sulfate 2.5 mg /3 mL (0.083 %) solution for nebulization See Rx Instructions .ROUTE .COMPLEX Qty: 75 0RF Dose Instruction: INHALE THE CONTENTS OF ONE VIAL VIA NEBULIZER EVERY 6 HOURS Rx Instructions: INHALE THE CONTENTS OF ONE VIAL VIA NEBULIZER EVERY 6 HOURS budesonide-formoterol [Symbicort] 160-4.5 mcg/actuation HFA aerosol inhaler See Rx Instructions .ROUTE .COMPLEX Qty: 10.2 0RF Dose Instruction: INHALE TWO PUFFS BY MOUTH TWICE DAILY. Rx Instructions: INHALE TWO PUFFS BY MOUTH TWICE DAILY. clopidogrel 75 mg tablet 75 mg PO DAILY Qty: 30 3RF atorvastatin 80 mg tablet 80 mg PO DAILY Qty: 30 2RF Rx Instructions: dose change diazepam 5 mg tablet See Rx Instructions PO .COMPLEX Qty: 35 5RF Rx Instructions: Take half a pill twice daily scheduled. Also, take half a pill daily as needed for severe anxiety. venlafaxine 75 mg tablet 75 mg PO DAILY Qty: 30 5RF Breztri Aerosphere 160-9-4.8 mcg/actuation HFA aerosol inhaler 2 inh inhalation BID Qty: 10.7 5RF aspirin [Adult Aspirin Regimen] 81 mg tablet,delayed release (DR/EC) 81 mg PO DAILY Qty: 30 3RF atenolol 25 mg tablet 25 mg PO DAILY 0RF Changed albuterol sulfate [Ventolin HFA] 90 mcg/actuation HFA aerosol inhaler 2 puff inhalation Q4H PRN (Reason: shortness of breath or wheezing) Qty: 8.5 1RF Discharge Orders: Discharge Order (Routine); Ordered 08/11/21 Ordered By: Pedro Gomez Other Ambulatory Orders: DME: Oxygen (Order) Location: None Selected Ordered By: Pedro Gomez Referrals: [facility] [place] [Outside] Flavia Rhodes FNP [Primary Care Provider] - 4-7 days (please call Friday08/13/21 for appointment ) Discharge Diet: Cardiac Discharge Activity: Increase activity as tolerated Patient Instructions: Opioid Safety Discharge Attestations Time Spent in Discharge Care*: greater than 30 min Time Spent in Smoking Cessation: Greater than 10 minutes was spent on smoking cessation counseling on day of discharge. Status at Discharge: Cognitive status at discharge: cognitively intact, Behavioral status at discharge: cooperative, Quality Metrics Clinical Quality Measures [ No reported AMI, CVA or VTE this stay] Coding Level of Care Code Acute g [facility] note Diagnoses Acute exacerbation of chronic obstructive pulmonary disease J44.1 Acute respiratory failure with hypoxia and hypercapnia J96.01; J96.02 Acute rhinosinusitis J01.90 Cigarette nicotine dependence F17.210 Hyponatremia E87.1 Myocardial injury I5A Panic disorder [episodic paroxysmal anxiety] F41.0 Abdominal aortic aneurysm I71.4 Peripheral Vascular Disease I73.9 Hypercholesteremia E78.00 CAD (coronary artery disease) I25.119 Coronary Disease-Associated Artery/Lesion type: [place] artery [place] vs. transplanted heart: [place] heart Associated angina: with unspecified form of angina HTN (hypertension) I10 Hypertension type: essential hypertension
--- NOTE | 2021-08-11 11:27 | PC.NURSE ---
Discharge medications called into [facility] pharmacy by this nurse. Called to cancel at [facility], but unable to leave a message.
--- NOTE | 2021-08-11 15:41 | PC.NURSE ---
pt recieved 2.5 of Valium, wasted 2.5 with rn vanessa.
== END 2021-08-11 12:45 | disposition home or self-care (01) | DRG 189 ==
LOC: ER 14:05 → MEDSURG 15:32
PROVIDERS: Admitting Provider Internal Medicine; Emergency Provider Emergency Medicine; PCP Nurse Practitioner Family; Visit Provider Internal Medicine
DX: J96.01 Acute respiratory failure with hypoxia (principal); J44.1 Chronic obstructive pulmonary disease with (acute) exacerbation; E87.1 Hypo-osmolality and hyponatremia; I5A Non-ischemic myocardial injury (non-traumatic); J96.02 Acute respiratory failure with hypercapnia; B34.8 Other viral infections of unspecified site; F17.210 Nicotine dependence, cigarettes, uncomplicated; J32.9 Chronic sinusitis, unspecified; I10 Essential (primary) hypertension; F41.0 Panic disorder [episodic paroxysmal anxiety]; I73.9 Peripheral vascular disease, unspecified; I71.4 Abdominal aortic aneurysm, without rupture; E78.00 Pure hypercholesterolemia, unspecified; I25.119 Atherosclerotic heart disease of native coronary artery with unspecified angina pectoris; Z79.02 Long term (current) use of antithrombotics/antiplatelets; Z79.82 Long term (current) use of aspirin; Z79.899 Other long term (current) drug therapy
CPT/HCPCS: 36415; 36600; 70450; 71045; 80048; 80053; 82803; 83735; 83880; 84100; 84145; 84443; 84484; 85025; 86140; 87040; 87631; 87635; 93005; 94640; 94660; 94664; 96365; 96375; 99285; G0378; J1650; J1885; J1940; J2270; J2920; J2930; J3490; J7512; J7626

== ENCOUNTER → 2021-08-21 12:13 | Outpatient (BNVA) | payer BC, MEDICAID, SELFPAY | PROVIDERS: PCP Nurse Practitioner Family; Visit Provider Nurse Practitioner Family | DX: E87.1 Hypo-osmolality and hyponatremia (principal); J44.1 Chronic obstructive pulmonary disease with (acute) exacerbation; J96.01 Acute respiratory failure with hypoxia; J96.02 Acute respiratory failure with hypercapnia; J44.9 Chronic obstructive pulmonary disease, unspecified | CPT/HCPCS: 80053; 85025 ==

== ENCOUNTER → 2021-10-29 13:11 | Outpatient (BNVA) | payer BC, MEDICAID, SELFPAY | PROVIDERS: PCP Nurse Practitioner Family; Visit Provider Otolaryngology | DX: Z87.891 Personal history of nicotine dependence (principal); J32.9 Chronic sinusitis, unspecified; J34.2 Deviated nasal septum; M95.0 Acquired deformity of nose | CPT/HCPCS: 99203; 99204 ==

== ENCOUNTER → 2021-11-12 17:16 | Outpatient (BNVA) | payer BC, MEDICAID, SELFPAY | PROVIDERS: PCP Nurse Practitioner Family; Visit Provider Family Medicine | DX: J02.9 Acute pharyngitis, unspecified (principal); H66.92 Otitis media, unspecified, left ear; I10 Essential (primary) hypertension; E78.00 Pure hypercholesterolemia, unspecified; E55.9 Vitamin D deficiency, unspecified; J44.9 Chronic obstructive pulmonary disease, unspecified | CPT/HCPCS: 80053; 80061; 82306; 84443; 85025 ==

== ENCOUNTER 2022-01-29 16:18 | Outpatient (CLI) | payer BC, MEDICAID, SELFPAY ==
--- NOTE | 2022-01-29 16:30 | CT_ITS ---
WS: [id number] CT SINUSES TECHNIQUE: Noncontrast CT of the paranasal sinuses with coronal and sagittal reformatted images. CLINICAL INFORMATION: chronic sinusitis COMPARISON: None. DLP: 330.[address] scans at [facility] use at least one of these dose optimization techniques: automated e xposure control; mA and/or kV adjustment per patient size (includes targeted exams where dose is matc hed to clinical indication); or iterative reconstruction. FINDINGS: Mild LEFT to RIGHT nasal deviation measuring 4.2 mm. Small rightward directed spur. RIGHT vance bull manuel. Paranasal sinuses are well aerated. Ostiomeatal units are patent. Hypoplastic frontal sinuses. E thmoid air cells well aerated. Maxillary sinuses and sphenoid sinuses are well aerated. Trace mucosal thickening ethmoid air cells. Mastoid air cells are well aerated. Middle ears are well aerated. Normal posterior nasopharynx. Annia l parapharyngeal fat. Partially visualized intracranial contents appear normal. CT/CT sinus wo con* [id number] IMPRESSION: 1. Paranasal sinuses are well aerated. Mild mucosal thickening ethmoid air manish ls. 2. Ostiomeatal units are patent. 3. Mastoid air cells well aerated. 4. Mild LEFT to RIGHT nasal septal deviation measuring 4.2 mm with a small rig htward directed spur. 5. RIGHT vance bullosa.
== END 2022-01-29 16:19 | disposition home or self-care (01) ==
LOC: RAD 16:18
PROVIDERS: PCP Nurse Practitioner Family; Visit Provider Otolaryngology
DX: J32.9 Chronic sinusitis, unspecified (principal); J34.2 Deviated nasal septum; J34.89 Other specified disorders of nose and nasal sinuses
CPT/HCPCS: 70486

== ENCOUNTER → 2022-04-02 14:10 | Outpatient (BNVA) | payer BC, MEDICAID, SELFPAY | PROVIDERS: PCP Nurse Practitioner Family; Visit Provider Nurse Practitioner Family | DX: J44.9 Chronic obstructive pulmonary disease, unspecified (principal); I25.119 Atherosclerotic heart disease of native coronary artery with unspecified angina pectoris; I10 Essential (primary) hypertension; E78.00 Pure hypercholesterolemia, unspecified; E55.9 Vitamin D deficiency, unspecified; J32.9 Chronic sinusitis, unspecified | CPT/HCPCS: 80053; 80061; 82306; 82607; 83735; 84443; 85025 ==

== ENCOUNTER → 2023-02-03 16:41 | Outpatient (BNVA) | payer BC, MEDICAID, SELFPAY | PROVIDERS: PCP Nurse Practitioner Family; Visit Provider Nurse Practitioner Family | DX: J44.9 Chronic obstructive pulmonary disease, unspecified (principal); I10 Essential (primary) hypertension; R73.9 Hyperglycemia, unspecified; E55.9 Vitamin D deficiency, unspecified | CPT/HCPCS: 80053; 80061; 82306; 82607; 83036; 83735; 84443; 85025 ==

== ENCOUNTER 2023-05-20 15:58 | Emergency (ER) | payer BC, MEDICAID, SELFPAY ==
[2023-05-20 16:03] VITALS: BP 137/81; PULSE 80; RESP 16; TEMP 36.6; O2SAT 96
--- NOTE | 2023-05-20 16:15 | W.ED.EPISTAX ---
HPI - Epistaxis General: Chief complaint: Epistaxis Stated complaint: bloody nose Time Seen by Provider: 05/20/23 16:10 Source: patient Mode of arrival: ambulatory Limitations: no limitations History of Present Illness: Patient is a 62-year-old female presents to ED today for evaluation of epistaxis. She states her nose began bleeding yesterday evening. No known injury or trauma. She states she has had nosebleeds previously but never this severe. She feels like these are attributed to some type of defect involving her sinus. She does tell me she takes Plavix and aspirin. Blood pressure is normal upon arrival. She arrives with a tampon in her right nare. MD complaint: epistaxis Location: right nostril Onset (ago): day(s) (yesterday evening) Duration: constant Context: history of previous and aspirin use Associated symptoms: Reports no associated symptoms; Deny fever(s) or sinus pain Treatment prior to arrival: stuffed nose with tissue (tampon) Review of Systems Const: Denies: fever(s), chills, body aches, fatigue or malaise ENMT: Reports: epistaxis; Denies: throat pain, enlarged tonsils, odynophagia, hoarseness, mouth pain, swelling of lips/tongue, oral sores, bleeding gums, dental pain, dry mouth, nasal discharge, nasal congestion or sinus pain [facility] ED PFSH: Medical History Psychiatric care UTI (urinary tract infection) Chronic obstructive pulmonary disease with bronchospasm Currently under oversight and management of Dr. Maurice from our pulmonary medicine service. She will follow-up with him in 2 weeks after discharge for continued optimization of her pulmonary status prior to attempt at rescheduling for CABG Cigarette nicotine dependence Panic disorder [episodic paroxysmal anxiety] COPD (chronic obstructive pulmonary disease) Peripheral Vascular Disease Hypercholesteremia CAD (coronary artery disease) HTN (hypertension) Surgical History S/P dilatation and curettage S/P tubal ligation S/P hysterectomy S/P right heart catheterization Family History Father Stroke Other Cancer Clotting disorder Social History Smoking and tobacco/nicotine status: former use of tobacco/nicotine Quit status (tobacco/nicotine): has quit using Second hand smoke exposure: Yes Alcohol intake: current Alcohol intake frequency: holidays/special occasions only Alcohol type: beer and hard liquor Substance/Drug Use: never Lives independently: Yes Household members: spouse Marital status: Current occupational status: disabled Pets and animals: Yes Do you think of yourself as: Straight/Heterosexual Current gender identity: Female Physical Exam Const: COMMON NORMALS: no acute distress, patient oriented x3, no limitations, healthy appearing, alert and well nourished HENMT: COMMON NORMALS: Normal external nose present NOSE: Normal external nose present and Other nasal findings present (nasal tampon removed and was clean/no blood; no active bleeding) MOUTH: Normal oral and palatal mucosa present and lip normal THROAT: posterior oropharynx normal and tonsils normal OTHER: no source identified; nasal tampon removed was completely clean with no saturation of blood; no bleeding resumed once this was removed; she did spit a very scant amount of blood Neuro: COMMON NORMALS: patient oriented x3 SENSORIUM/ORIENTATION: Yes alert Course Vital Signs: Vital signs: Vital Signs Temperature 97.9 F 05/20/23 16:03 Pulse Rate 80 05/20/23 16:03 Respiratory Rate 16 05/20/23 16:03 Blood Pressure 137/81 05/20/23 16:03 Pulse Oximetry 96 05/20/23 16:03 Oxygen Delivery Me thod Room Air 05/20/23 16:03 MDM - Epistaxis Medical Decision Making Patient's nasal tampon was removed and I did not visualize any active bleeding following this. She would occasionally spit up a small amount of blood-tinged sputum but nothing anteriorly I can visualize from her nares. She states she has a history of some type of septal defect or trauma and I think any type of posterior pack would be difficulty. No indication anyway based on exam. Return to ED precautions given. Differential Diagnosis Likely posterior epistaxis No radiology studies performed this visit Discharge Plan Discharge Patient Disposition: Home Clinical Impression: Epistaxis Condition: Stable Prescriptions: No Action fluticasone propionate [Flonase Allergy Relief] 50 mcg/actuation spray,suspension 1 spray INTRANASAL DAILY PRN (Reason: allergy symptoms) Qty: 15.8 2RF nitroglycerin [Nitrostat] 0.4 mg tablet, sublingual 0.4 mg SUBLINGUAL Q5M PRN (Reason: Chest Pain) herbal drugs Tablet 1 tab PO DAILY budesonide-formoterol [Symbicort] 160-4.5 mcg/actuation HFA aerosol inhaler See Rx Instructions .ROUTE .COMPLEX Qty: 10.2 5RF Dose Instruction: INHALE TWO PUFFS BY MOUTH TWICE DAILY Rx Instructions: INHALE TWO PUFFS BY MOUTH TWICE DAILY albuterol sulfate [Ventolin HFA] 90 mcg/actuation HFA aerosol inhaler See Rx Instructions .ROUTE .COMPLEX Qty: 18 5RF Dose Instruction: INHALE TWO PUFFS BY MOUTH EVERY 4 HOURS NEEDED FOR SHORTNESS OF BREATH OR wheezing Rx Instructions: INHALE TWO PUFFS BY MOUTH EVERY 4 HOURS NEEDED FOR SHORTNESS OF BREATH OR wheezing clopidogrel 75 mg tablet See Rx Instructions .ROUTE .COMPLEX Qty: 30 5RF Dose Instruction: TAKE ONE TABLET BY MOUTH DAILY Rx Instructions: TAKE ONE TABLET BY MOUTH DAILY diazepam 5 mg tablet See Rx Instructions PO .COMPLEX Qty: 35 5RF Rx Instructions: Take half a pill twice daily scheduled. Also, take half a pill daily as needed for severe anxiety. (DME) nebulizer See Rx Instructions .Route .MEDSUPPLY Qty: 1 0RF Rx Instructions: As directed ergocalciferol (vitamin D2) 50 mcg (2,000 unit) capsule 50 mcg PO DAILY Qty: 30 2RF (DME) Home O2 fill system See Rx Instructions .Route .MEDSUPPLY Qty: 1 0RF Rx Instructions: As directed venlafaxine 75 mg tablet See Rx Instructions .ROUTE .COMPLEX Qty: 30 11RF Dose Instruction: TAKE ONE TABLET BY MOUTH DAILY. Rx Instructions: TAKE ONE TABLET BY MOUTH DAILY. atenolol 25 mg tablet See Rx Instructions .ROUTE .COMPLEX Qty: 14 0RF Dose Instruction: TAKE ONE TABLET BY MOUTH DAILY. Rx Instructions: TAKE ONE TABLET BY MOUTH DAILY. epinephrine [EpiPen] 0.3 mg/0.3 mL auto-injector 0.3 mg IM ONCE PRN (Reason: anaphylaxis) Qty: 2 0RF ezetimibe [Zetia] 10 mg tablet 10 mg PO DAILY Qty: 90 0RF albuterol sulfate 2.5 mg /3 mL (0.083 %) solution for nebulization See Rx Instructions .ROUTE .COMPLEX Qty: 90 1RF Dose Instruction: INHALE ONE VIAL VIA NEBULIZER EVERY 6 HOURS DIRECTED Rx Instructions: INHALE ONE VIAL VIA NEBULIZER EVERY 6 HOURS DIRECTED aspirin [Adult Aspirin Regimen] 81 mg tablet,delayed release (DR/EC) 81 mg PO DAILY Qty: 30 3RF Discharge Orders: Discharge ED (Routine); Ordered 05/20/23 Ordered By: Porsche Crane Referrals: Flavia Rhodes FNP [Primary Care Provider] - Patient Instructions: Epistaxis - Adult Activity Restrictions/Additional Instructions: As we discussed bleeding here has been scant. There is no indication for posterior nasal packing at this time. You have been given instructions for if bleeding resumes at home. As we discussed if you are unable to get bleeding to stop and you feel bleeding is severe you need to return to the emergency department for further management. Coding Level of Care Code ED Customer Support Advisor for Peyton Cannon
[2023-05-20] MEDS: oxymetazoline 0.05% Nasal Spray 15 mL 2 SPRAY NOSTRIL-B (16:35)
== END 2023-05-20 17:17 | disposition home or self-care (01) ==
PROVIDERS: Emergency Provider Physician Assistant; PCP Nurse Practitioner Family
DX: R04.0 Epistaxis (principal); Z79.82 Long term (current) use of aspirin; Z79.02 Long term (current) use of antithrombotics/antiplatelets; J44.9 Chronic obstructive pulmonary disease, unspecified; I25.10 Atherosclerotic heart disease of native coronary artery without angina pectoris; I10 Essential (primary) hypertension; Z87.891 Personal history of nicotine dependence
CPT/HCPCS: 99283

== ENCOUNTER → 2023-09-16 15:13 | Outpatient (BNVA) | payer BC, MEDICAID, SELFPAY | PROVIDERS: PCP Nurse Practitioner Family; Visit Provider Nurse Practitioner Family | DX: R73.9 Hyperglycemia, unspecified (principal); I10 Essential (primary) hypertension; E55.9 Vitamin D deficiency, unspecified; Z79.899 Other long term (current) drug therapy | CPT/HCPCS: 80053; 80061; 82306; 83036; 84443; 85025 ==

== ENCOUNTER 2023-10-17 14:11 | Outpatient (CLI) | payer BC, MEDICAID, SELFPAY ==
--- NOTE | 2023-10-17 15:00 | MM_ITS ---
WS: [id number] BILATERAL 3D TOMOSYNTHESIS DIGITAL SCREENING MAMMOGRAPHY WITH CAD CLINICAL INFORMATION: Z12.39 - Encounter for other screening for malignant neop... HISTORY: Screening mammogram. No current complaints. COMPARISON: Baseline TECHNIQUE: Bilateral CC and MLO views. FINDINGS: The breasts are composed of heterogeneous fibroglandular density tissue, which can limit the detectio n of small underlying mass lesions. No suspicious mass, asymmetry, calcifications, or architectural d istortion. No evidence of malignancy. Coarse calcifications RIGHT breast. Lucent centered calcificati on LEFT breast. MM/[place] [id number] IMPRESSION: BI-RADS: 2-Benign FOLLOW UP: 1 Year Follow-up Recommend return to annual screening mammography.
== END 2023-10-17 14:12 | disposition home or self-care (01) ==
LOC: RAD 14:11
PROVIDERS: PCP Nurse Practitioner Family; Visit Provider Nurse Practitioner Family
DX: Z12.39 Encounter for other screening for malignant neoplasm of breast (principal); R92.1 Mammographic calcification found on diagnostic imaging of breast
CPT/HCPCS: 77063; 77067

== ENCOUNTER → 2024-07-13 15:28 | Outpatient (BNVA) | payer MEDICAID, SELFPAY | PROVIDERS: PCP Nurse Practitioner Family; Visit Provider Nurse Practitioner Family | DX: I10 Essential (primary) hypertension (principal); E55.9 Vitamin D deficiency, unspecified; R73.9 Hyperglycemia, unspecified | CPT/HCPCS: 80053; 80061; 82306; 82607; 83036; 84443; 85025 ==

== ENCOUNTER → 2024-07-22 14:01 | Outpatient (BNVA) | payer MEDICAID, SELFPAY | PROVIDERS: PCP Nurse Practitioner Family; Referring Provider Nurse Practitioner Family; Visit Provider Student in an Organized Health Care Education/Training Program | DX: Z01.818 Encounter for other preprocedural examination (principal); Z12.11 Encounter for screening for malignant neoplasm of colon | CPT/HCPCS: 99024; 99204 ==

== ENCOUNTER 2024-07-29 12:46 | Outpatient (CLI) | payer MEDICAID, SELFPAY ==
--- NOTE | 2024-07-29 12:51 | CTR_ITS ---
PROCEDURE INFORMATION: Exam: CTA Abdomen and Pelvis With Contrast Exam date and time: 07/29/2024 1:33 PM Age: 63 years old Clinical indication: Condition or disease; Other: Aaa w/o rupture; Arterial aneurysm; Without rupture; Abdominal; Prior surgery; Surgery date: 6+ months; Surgery type: Heart stent, partial hyst TECHNIQUE: Imaging protocol: Computed tomographic angiography of the abdomen and pelvis with contrast. Exam focused on the arteries. 3D rendering (Not supervised by radiologist): MIP and/or 3D reconstructed images were created by the technologist. Radiation optimization: All CT scans at this facility use at least one of these dose optimization techniques: automated exposure control; mA and/or kV adjustment per patient size (includes targeted exams where dose is matched to clinical indication); or iterative reconstruction. Contrast material: OMNI 350; Contrast volume: 100 ml; Contrast route: INTRAVENOUS (IV); COMPARISON: US pelvic complete* [id number] 11/15/2020 10:24 AM RADIATION DOSE METRICS: Total DLP (mGy-cm): 364.57 FINDINGS: Aorta: 5.1 x 4.4 cm infrarenal abdominal aortic aneurysm. No evidence of rupture. Eccentric bulge measuring 2 x 0.8 cm along the left posterolateral aspect of the aneurysm sac. Extensive mural thrombus. Celiac trunk and mesenteric arteries: No occlusion or significant stenosis. Renal arteries: No occlusion or significant stenosis. Right iliac arteries: No occlusion or significant stenosis. Extensive atherosclerotic disease. Left iliac arteries: No occlusion or significant stenosis. Extensive atherosclerotic disease. Liver: No mass. Gallbladder and biliary ducts: Unremarkable. No calcified stones. No ductal dilation. Pancreas: Unremarkable. No mass. No ductal dilation. Spleen: Unremarkable. No splenomegaly. Adrenal glands: Unremarkable. No mass. Kidneys and ureters: Unremarkable. No solid mass. No hydronephrosis. Stomach and bowel: Unremarkable. No obstruction. No mucosal thickening. Appendix: No evidence of appendicitis. Intraperitoneal space: Unremarkable. No free air. No significant fluid collection. Lymph nodes: Unremarkable. No enlarged lymph nodes. Urinary bladder: Unremarkable. No mass. Reproductive: Uterus is surgically absent. No evidence of adnexal mass. Bones/joints: No acute fracture. Soft tissues: Unremarkable. CT/CT angio abdomen pelvis [id number] IMPRESSION: 5.1 cm infrarenal abdominal aortic aneurysm. No evidence of rupture currently, but eccentric left posterolateral bulge from the aneurysm sac could be a sign of impending rupture. THIS REPORT CONTAINS FINDINGS THAT MAY BE CRITICAL TO PATIENT CARE. The findings were verbally communicated via telephone conference at 2:20 PM CDT on 07/29/2024 with Joselyn Wahl RN, as the ordering physician was unavailable for immediate conference. The findings were acknowledged and understood.
[2024-07-29] MEDS: iohexol 350 mg/mL 500 mL Btl (per mL) IV (13:44)
== END 2024-07-29 12:47 | disposition home or self-care (01) ==
PROVIDERS: PCP Nurse Practitioner Family; Visit Provider Nurse Practitioner Family
DX: I71.43 Infrarenal abdominal aortic aneurysm, without rupture (principal); R93.89 Abnormal findings on diagnostic imaging of other specified body structures; I70.8 Atherosclerosis of other arteries; Z98.890 Other specified postprocedural states
CPT/HCPCS: 74174

== ENCOUNTER → 2025-02-07 11:44 | Outpatient (BNVA) | payer MEDICAID, SELFPAY | PROVIDERS: PCP Nurse Practitioner Family; Visit Provider Nurse Practitioner Family | DX: I10 Essential (primary) hypertension (principal); E55.9 Vitamin D deficiency, unspecified | CPT/HCPCS: 80053; 80061; 82306; 82607; 84443; 85025 ==